=== PATIENT | female | born 1950 | race Caucasian/White ===

== ENCOUNTER 2020-11-08 10:39 | Outpatient (REF) | payer MEDICARE, SELFPAY ==
--- NOTE | ~2020-11-08 | CT_ITS ---
EXAMINATION: CT CHEST WITH CONTRAST CLINICAL INFORMATION: Persistent cough COMPARISON: Previous chest x-ray April 2009 TECHNIQUE: Multidetector volumetric CT imaging of the chest was obtained after the administration of 65 mL of Omnipaque 350 intravenous contrast without immediate adverse reactions. Axial MIP volume rendering provided. Sagittal and coronal reformatted images were obtained. This CT examination was performed using dose optimization techniques as appropriate, variously including the following: *Automated exposure control *Adjustment of mA and/or kV according to patient size (this includes techniques or standardized protocols for targeted exams where dose is matched to indication/reason for exam; i.e. extremities or head) *Use of iterative reconstruction technique DLP: 140 mGy-cm FINDINGS: LUNGS: The lungs are clear. No pulmonary mass or nodule or evidence of pneumonia is seen. No endobronchial or endotracheal lesion is seen. MEDIASTINUM: There is evidence of mild coronary artery calcification. The mediastinum is otherwise normal. PLEURA: There is no pleural effusion. No pleural mass or thickening. AXILLA: No lymphadenopathy. UPPER ABDOMEN: The gallbladder is been removed. There is fatty infiltration of the liver. There is mild diverticulosis of the colon. There is fullness of the left renal pelvis. OSSEOUS STRUCTURES: There is scoliosis and degenerative change of the spine. CT/CT chest w con IMPRESSION: Mild coronary artery calcification otherwise unremarkable chest CT.
[2020-11-08] MEDS: iohexoL 350 MG/ML 100 ML INFUS..BTL IV (11:43)
== END 2020-11-08 10:40 | disposition home or self-care (01) ==
LOC: HO.CT 10:39
PROVIDERS: PCP Internal Medicine; Visit Provider Internal Medicine
DX: R05 Cough (principal)
CPT/HCPCS: 71260; Q9967

== ENCOUNTER 2022-01-29 07:26 | Day surgery (SDC) | payer MEDICARE, SELFPAY ==
--- NOTE | 2022-01-28 12:07 | HO.ANESPROP2 ---
Documented by User: Anjana Howard NP 01/28/22 12:08 HPI - Anesthesia Eval Consult details Narrative: 72yo F for Colonoscopy [facility] Past Medical History Medical History Huerta's cyst of knee Basal cell carcinoma GERD (gastroesophageal reflux disease) IBS (irritable bowel syndrome) Macular degeneration Surgical History Surgical History History of lumpectomy of left breast History of total abdominal hysterectomy Hx of appendectomy Hx of cholecystectomy Hx of colonoscopy Hx of esophagogastroduodenoscopy Hx of umbilical hernia repair Social History Social History Patient Tobacco Use Status: Never used Tobacco Are you DNR?: No Advance Directives: No Advance Directives Information Provided: Yes Recently lost weight without trying: No Nutrition Risks: No Nutritional Risk Meds Allergies Allergy/AdvReac Type Severity Reaction Status Date / Time Sulfa (Sulfonamide Allergy Unknown Verified 02/09/13 00:00 Antibiotics) From ZYRTEC Allergy Mild BILLIGERENT Uncoded 12/29/19 14:53 Lactose Allergy Unknown Uncoded 02/09/13 00:00 ZyrTEC Allergy Unknown Uncoded 02/09/13 00:00 Home Medications Medication Instructions Recorded Confirmed Last Taken Type aspirin 81 mg tablet 81 mg PO DAILY 01/28/22 01/29/22 01/22/22 History ibuprofen 200 mg tablet 200 mg PO Q6H PRN Pain 01/29/22 01/29/22 Unknown History Exam Exam Date and Time: January 28, 2022 120 Assessment and Plan Assessment Anesthesia Assessment: Chart Reviewed Documented by User: Vanessa Moreno MD 01/29/22 09:23 [facility] Past Medical History Medical History Huerta's cyst of knee Basal cell carcinoma GERD (gastroesophageal reflux disease) IBS (irritable bowel syndrome) Macular degeneration Functional capacity: uses cane/walker Surgical History Surgical History History of lumpectomy of left breast History of total abdominal hysterectomy Hx of appendectomy Hx of cholecystectomy Hx of colonoscopy Hx of esophagogastroduodenoscopy Hx of umbilical hernia repair History of Problems with Anesthesia: No Social History Social History Patient Tobacco Use Status: Never used Tobacco Are you DNR?: No Advance Directives: No Advance Directives Information Provided: Yes Recently lost weight without trying: No Nutrition Risks: No Nutritional Risk Meds Allergies Allergy/AdvReac Type Severity Reaction Status Date / Time Sulfa (Sulfonamide Allergy Unknown Verified 02/09/13 00:00 Antibiotics) From ZYRTEC Allergy Mild BILLIGERENT Uncoded 12/29/19 14:53 Lactose Allergy Unknown Uncoded 02/09/13 00:00 ZyrTEC Allergy Unknown Uncoded 02/09/13 00:00 Home Medications Medication Instructions Recorded Confirmed Last Taken Type aspirin 81 mg tablet 81 mg PO DAILY 01/28/22 01/29/22 01/22/22 History ibuprofen 200 mg tablet 200 mg PO Q6H PRN Pain 01/29/22 01/29/22 Unknown History Exam Airway Mallampati Class: II TM Dist: >3cm Neck ROM: Full Loose/Missing/Broken Teeth: No Heart: RRR Lungs: CTA Assessment and Plan Assessment Anesthesia Assessment: Anesthesia Plan Discussed Final Anesthetic Review History of Problems with Anesthesia: No NPO: Yes ASA Class: II Final Preanesthetic Review: Meds/Allgs Chart Reviewed, Consent Obtained/Reviewed and Anes Risks/Benef Reviewed Patient Risk: Low Procedure Risk: Low Anesthetic Plan Anesthetic Plan: MAC: Disposition: Standard PACU
[2022-01-29 07:01] VITALS: BMI 33.0
[2022-01-29 07:32] VITALS: BP 126/64; PULSE 102; RESP 18; TEMP 36.6; O2SAT 98
[2022-01-29] MEDS: Lactated Ringers 1,000 ML 100 ML IVCONT (08:00)
[2022-01-29 09:47] VITALS: BP 158/82; PULSE 87; RESP 18; TEMP 36.4; O2SAT 99
[2022-01-29 10:02] VITALS: BP 92/58; PULSE 63; RESP 16; TEMP 36.2; O2SAT 99
--- NOTE | 2022-01-29 10:02 | PM.OP ---
Brief Operative Note Date of Service: 01/29/22 Pre-op diagnosis: Screening Post-op diagnosis: other (Polyp) Procedure: Colonoscopy to the cecum and TI with bx/removal of polyp Surgeon: Steve Regalado Anesthesia: MAC Was an Frame Sample And Pattern Supervisor used for this Procedure?: No Estimated blood loss (mL): 2.0 Pathology: other (A. Ascending colon polyp) Condition: stable Disposition: PACU
[2022-01-29 10:17] VITALS: BP 105/64; PULSE 64; RESP 16; O2SAT 99
[2022-01-29 10:32] VITALS: BP 143/62; PULSE 64; RESP 16; TEMP 36.2; O2SAT 99
--- NOTE | 2022-01-29 10:54 | OP_ITS ---
SURGEON: Steve Regalado MD INDICATIONS: The patient presents for evaluation of colorectal cancer screening and family history of colon cancer. Full consent has been obtained from her for this, including risks of bleeding and perforation. PREOPERATIVE DIAGNOSIS: Colorectal cancer screening and family history of colon cancer. POSTOPERATIVE DIAGNOSIS: PROCEDURE PERFORMED: Colonoscopy to the cecum and terminal ileum with biopsy and removal of polyp. ESTIMATED BLOOD LOSS: COMPLICATIONS: ANESTHESIA: Monitored anesthesia care. ASSISTANTS: SPECIMENS: POSTOPERATIVE DIAGNOSES: Colorectal cancer screening and family history of colon cancer, small colon polyp, diverticulosis, internal hemorrhoids. DESCRIPTION OF PROCEDURE: The patient was placed in the left lateral decubitus position. The digital rectal exam revealed no abnormalities. The Olympus video pediatric colonoscope was entered into the rectum and advanced to the cecum with the assistance of abdominal wall pressure. Advancement to the cecum was difficult. Once in the cecum I did identify a normal-appearing cecal pouch with appendiceal orifice and a normal-appearing ileocecal valve. The terminal ileum was cannulated and appeared normal. The scope was withdrawn back in the colon. The entire cecum and ileocecal valve appeared normal. The scope was then slowly withdrawn assessing all mucosal surfaces carefully. Preparation was excellent. In the proximal ascending colon was an approximately 4 or 5 mm polyp, which was biopsied and completely removed with a cold biopsy forceps. I did not visualize any other polyps, colitis, nor angiodysplasia. There was a mild amount of diverticulosis in the ascending colon. There was a moderate amount of diverticulosis in the sigmoid colon. In the rectum, the scope was retroflexed visualizing internal hemorrhoids, but no other pathology. The rectal mucosa appeared normal. The scope was straightened and withdrawn from the patient. She tolerated the procedure well and was returned to the recovery area in stable condition. IMPRESSION: 1. Diverticulosis. 2. Internal hemorrhoids. 3. Small colon polyp. PLAN: The results of the pathology will be checked I would recommend a repeat colonoscopy in 5 years given her family history of colon cancer. She will otherwise see me on a p.r.n. basis. MD ALEX Nath/JOANNA / [id number]
== END 2022-01-29 11:40 | disposition home or self-care (01) ==
PROVIDERS: PCP Internal Medicine; Visit Provider Internal Medicine
PROC: 0DJD8ZZ Inspection of Lower Intestinal Tract, Via Natural or Artificial Opening Endoscopic (ICD-10-PCS; CPT 45378; principal; 2022-01-29 08:40)
DX: Z12.11 Encounter for screening for malignant neoplasm of colon (principal); Z80.0 Family history of malignant neoplasm of digestive organs; D12.2 Benign neoplasm of ascending colon; K57.30 Diverticulosis of large intestine without perforation or abscess without bleeding; K64.8 Other hemorrhoids; K21.9 Gastro-esophageal reflux disease without esophagitis; K58.9 Irritable bowel syndrome, unspecified; Z79.82 Long term (current) use of aspirin; Z90.49 Acquired absence of other specified parts of digestive tract
CPT/HCPCS: 45380; 88305

== ENCOUNTER 2024-10-20 09:16 | Outpatient (REF) | payer MEDICARE, SELFPAY ==
--- NOTE | ~2024-10-20 | XR_ITS ---
EXAMINATION: XR CHEST CLINICAL INFORMATION: DYSPNEA ON EXERTION COMPARISON: April 16, 2009. TECHNIQUE: 2 views of the chest were obtained. FINDINGS: Pulmonary reticular pattern. No consolidation pleural effusion or pneumothorax. No hyperinflation. Cardiomediastinal silhouette size is normal. Calcified plaque thoracic aortic arch. Multilevel thoracolumbar spondylosis. Osteopenia versus osteoporosis. Probable old compression deformities in the mid to lower thoracic spine representing less than 20% volume loss. S-shaped curvature of the thoracolumbar spine. Vascular clips in the right upper quadrant abdomen. XR/XR chest 2V IMPRESSION: No acute airspace disease. Scoliosis and multilevel spondylosis. Probable status post cholecystectomy. Electronically signed by: Dakota Crane MD 10/20/2024 09:40 AM EDT
--- OUTSIDE RECORDS SUMMARY | 2024-10-20 09:42 | XMS_ITS | Data Portability ---
Author Organization [place] [facility], [facility], [facility] Address [address] [place] [address] Assessment No assessment recorded. Plan of Treatment Reminders Order Date Submit Date Provider Last Modified By Organization Details Last Modified Time Details Appointments None recorded. Lab None recorded. Referral neurologis t referral - eval requested, had CT Head in [facility] last month. 2022 023 [facility] John Ernst, [address] [place] [address], [facility] [address], [place], [address], 21:50:31 Procedures None recorded. Surgeries None recorded. Imaging None recorded. Medication Orders None recorded. Patient TargetsNo targets recorded. Patient InstructionsNo instructions recorded. Reason for Referral Neurologist Referral for Mem ory impairment eval requested, had CT Head in [facility] last month. Referring Physician: Lorene Ortiz, Family Medicine, Encounter Date: 08/13/2022 Medical Equipment None Reported. Allergies No known drug allergies Medications Name Sig Start Date Stop Date Status Note LastModified by Organization Details LastModified Time ketoconazole 2 % shampoo MASSAGE INTO SCALP, LET IT SIT FOR 5-10 MINUTES THEN WASH OUT CAN USE DAILY OR 2-3 TIMES A WEEK active Not Available Not Available No t Available cetirizine 10 mg tablet TAKE 1 TABLET BY MOUTH EVERY DAY active Not Available Not Available No t Available amoxicillin 500 mg tablet TAKE 1 TABLET BY MOUTH 3 TIMES A DAY UNTIL GONE active Not Available Not Available No t Available mupirocin 2 % topical ointment APPLY TO SURGICAL SITE TWICE A DAY 7-14 DAYS OR UNTIL FULLY HEALED active Not Available Not Available No t Available celecoxib 100 mg capsule TAKE ONE CAPSULE BY MOUTH 2 TIMES A DAY NEEDED active Not Available Not Available No t Available clindamycin phosphate 1 % topical solution APPLY TO AFFECTED AREA ONCE TO TWICE DAILY NEEDED. active Not Available Not Available No t Available diclofenac 1 % topical gel APPLY TO LEFT KNEE TWICE A DAY active Not Available Not Available No t Available Vitals None Recorded Social History None recorded. Functional Status None recorded. Mental Status None recorded. Family History Nothing Reported. Medical History No medical history recorded. Gynecological HistoryNo gynecological history recorded. Obstetrics History GPAL:G 0 P 0 0 0 0 Past Encounters Encounter ID Performer Location Encounter Start Date Encounter Closed Date Diagnosis/Indication Diagnosis SNOMED-CT Code Diagnosis ICD10 Code Diagnosis Note [id number] Lorene Ortiz APRN [address] [address] 08/13/2022 15:54:50 08/15/2022 10:56:34 Forgetful 63736882 R41.3 Memory impairment 900191 006 R41.3 Migraine with aura 71051 06 G43.109 Visual impairment 812683 003 H54.7 Health Concerns Section Related Observation LastModified by Organization Detai ls LastModified Time None Recorded Concern Status LastModified by Organization Details LastModified Time None Recorded Advance Directives Directive None Recorded Payers Insurance Date Sequence Insurance Name Policy Number Policy Finch Covered Member ID Finch Member ID Guarantor Name 12/31/2023 1 [place] Julian Long [id number] Julian Long 09/02/2022 2 [id number] (MEDICARE SUPPLEMENT) Julian Long 08/13/2022 1 *SELF PAY* Shanita Long Notes Date Note Type Note Provider Name and Address Organization Details Recorded Time 08/13/2022 text/html 72 yo female presents for follow up, telemed c/o still having an issue of pain to the left knee, no wound. Instructed to see ortho over a year ago, she was advised to not have surgery at this time. She had injured the leg dancing. The knee is not giving out, no obvious swelling. c/o memory loss and forgetfulness, forgets names, gets confused with words, but unable to recall the word sometimes. difficulty with conversations or maintaining a speech dialogue. headaches, blurred vision also experienced, photosensitivity, had Aura/halo in the past, but more freq lately. no falls , no head trauma. Progressing over the past few years. -has been exercising more, no shuffling admitted, does ambulate more effectively. -CT head recently- arthritis of the neck per patient's spouse. [address] [facility]. Consent:I understand and agree that my Healthcare Provider may utilize telemedicine (the electronic communication of medical information) including, but not limited to, video conferencing, electronic transmission of imaging, and remote monitoring of vital signs as part of my Care. Except in emergency circumstances, my Healthcare Provider will explain the risks and benefits of telemedicine prior to the telemedicine encounter. I understand that I have the right to seek Care elsewhere in lieu of a telemedicine encounter. This visit was performed using real time audio-visual communication with the patient. Patient verbally consented. Patient location:Home Provider location:Office The participants are myself, the patient____ participants and their role. Lorene Ortiz, [employer] ANALYST [address], [address], [place], [address], [facility] [place] 08/13/2022 17:26:29 OBGyn Episode No OBEpisode recorded.
--- OUTSIDE RECORDS SUMMARY | 2024-10-20 09:42 | XMS_ITS | Patient Health Record ---
Author Organization [facility] [place] Address [address] [place] [address] Care Team Providers Care Date Night Sitter Name Role Phone Conner Hauser MD Primary Care Provider Lonnie Ngo Unavailable [phone] Allergies Allergen (clinical drug ingredient) Drug/Non Drug Allergy documented on EMR Reaction Allergy Type Onset Date Status Lactose Unknown Drug Allergy Active ZyrTEC Unknown Drug Allergy Active sulfa lethargic Drug Allergy Active Reason For Referral No Information Medications Medication SIG (Take, Route, Fr equency, Duration) Notes Start Date End Date Status Aspirin 81 MG 1 tablet Orally Once a day 4 Not-Taking Physical Therapy . . . 2-3x/week; Durat ion: 3-4 weeks 07/10/2014 Active PriLOSEC 40 MG 1 capsule Orally Once a day Not-Taking Social History Tobacco use other than smoking: Question Answer Notes Are you an other tobacco user? No Problems Problem Type SNOMED Code ICD Code Onset Dates Problem Status W/U Status Risk Notes Problem Verruca plantaris (28767157) Verruca Plantaris (078.19) Active confirmed Problem Pain in limb (74071850) Pain in Limb (729.5) Active confirmed Problem Hammer toe (585066649) Hammer toe (735.4) Active confirmed Plan Of Treatment Pending Test Test Name Order Date X ray : Foot, right 3V 07/10/2014 63408-Ufpy Destruction, 1-14 07/24/2014 82520-Wqrm Destruction, -14 08/16/2014 98194-Ilnh Destruction, -07/11/2013 89933-Hjtk Destruction, -08/08/2013 90843-Prlq Destruction, 04-2609/07/2013 24285-Phjs Destruction, 04-2610/13/2013 95616-Urml Destruction, 04-2611/10/2013 53718-Xhmh Destruction, 04-2612/14/2013 15858-Dluk Destruction, 04-2601/25/2014 27192-Cbbn Destruction, 04-2602/27/2014 78503-Xpsr Destruction, 04-2603/29/2014 33738-Lemx Destruction, 04-2605/31/2014 73635-Rncf Destruction, 04-2606/28/2014 59878-Dtow Destruction, 04-2607/10/2014 Insurance Providers Payer Name Payer Address Payer Phone Subscriber Number Group Number Insured Name Patient Relationship to Insured Coverage Start Date Coverage End Date [facility] [address] [place] [address] [phone] [id number] Eduin Long Spouse - patient is the spouse of the insured Medical (General) History Medical History History ICD Code Chicken pox Measles Mumps Transfusions Surgical History Surgery Date(Month/Year) cystectomy gall bladder hysterectomy lumpectomy
== END 2024-10-20 09:17 | disposition home or self-care (01) ==
LOC: HO.HMGCX 09:16
PROVIDERS: PCP Internal Medicine; Visit Provider Internal Medicine
DX: R06.09 Other forms of dyspnea (principal)
CPT/HCPCS: 71046

== ENCOUNTER → 2024-10-20 09:22 | Outpatient (BNV) | payer MEDICARE, SELFPAY | PROVIDERS: PCP Internal Medicine; Visit Provider Radiology Diagnostic Radiology | DX: R06.00 Dyspnea, unspecified (principal); M47.814 Spondylosis without myelopathy or radiculopathy, thoracic region; M48.04 Spinal stenosis, thoracic region | CPT/HCPCS: 71046 ==

== ENCOUNTER 2024-11-10 11:20 | Outpatient (AMB) | payer MEDICARE, SELFPAY ==
--- NOTE | 2024-11-10 11:25 | MHC.OFFVIS ---
Vital Signs 11/10/24 11:26 Height 5 ft 1 in Intake Visit Reasons: [employer]ING [employer]AL [employer]ER/PCP referral for LE swelling Intake Note: [employer]ING [employer]ER for LE swelling, Left LE slightly worse than the Right LE x 5 yrs. Pt states worse when standing. Pt states elevation does help, but in the past the swelling would reduce quicker than it does now. Pt states she does wear compression when traveling. Map Compiler Required: No Accompanied by: Spouse Allergies Sulfa (Sulfonamide Antibiotics) Allergy (Unknown, Verified 02/09/13 00:00) From ZYRTEC Allergy (Mild, Uncoded 12/29/19 14:53) BILLIGERENT Lactose Allergy (Unknown, Uncoded 02/09/13 00:00) ZyrTEC Allergy (Unknown, Uncoded 02/09/13 00:00) HPI HPI [employer]ING [employer]ER/PCP referral for LE swelling: Details: Very pleasant 74 year patient presents for painful varicose veins. Complaints include pain over varicosities, swelling of lower extremities, cramping, fatigue, and heaviness of the lower extremities. It has been affecting there daily activities including walking and driving on long trips. It is noted more so in right leg. Of note she has used her daughter's lymphedema pumps which did provide some assistance. Patient denies any previous venous surgery or injections. Patient denies any history of DVT/ PE. Patient denies any history of phlebitis. Trial of compression includes - [id number] They now present for vascular evaluation regarding their varicose veins. [facility] Medical History Macular degeneration Huerta's cyst of knee Basal cell carcinoma IBS (irritable bowel syndrome) GERD (gastroesophageal reflux disease) Surgical History History of lumpectomy of left breast Hx of umbilical hernia repair Hx of appendectomy Hx of cholecystectomy History of total abdominal hysterectomy Hx of esophagogastroduodenoscopy Hx of colonoscopy Social History Patient Tobacco Use Status: Never used Tobacco Review of Systems Const Reports as per HPI ENT Reports no additional complaints Card Denies chest pain, Denies chest pain at rest and Denies chest pain with activity Resp Denies chest congestion and Denies cough GI Reports no additional complaints Musc Details: pain over varicosities, aching of lower extremities, swelling, cramping, heaviness and tiredness, itching Denies abnormal gait Skin/Breast Reports pruritus and Denies wounds Neuro Reports no additional complaints and Denies abnormal gait Psych Denies no additional complaints Physical Exam Const General: cooperative, healthy appearing and comfortable Orientation/consciousness: oriented to person, oriented to place and oriented to time Neck Carotids: no bruits Chest Chest palpation & inspection: normal inspection of the chest and normal palpation of entire chest wall Resp Effort & Inspection: normal respiratory effort and able to speak in complete sentences Cardio Rate: regular rate Heart sounds: S1 normal heart sound present and S2 normal heart sound present Peripheral pulses: Peripheral pulses 2+ throughout GI Inspection: Yes normal to inspection Skin Other: +2 edema, large rope-like varicosities greater than 4 mm CEAP Classification C4 - skin color changes Ep - Etiology Primary As - superficial veins P - reflux General skin exam: dry skin Neuro General: oriented to person, oriented to place and oriented to time Extrem Other: Right in cm: Thigh 59 Knee 43 Calf 39 Ankle 27 Left in cm: Thigh 56 Knee 40.5 Calf 40.5 Ankle 26 Right lower extremity: full ROM, normal capillary refill and edema Left lower extremity: full ROM, normal capillary refill and edema Psych Mental Status: mental status grossly normal Assessment & Plan Assessment & Plan (1) Varicose veins of right lower extremity with inflammation: Code(s): I83.11 - Varicose veins of right lower extremity with inflammation Category: Medical Plan: In short, the patient has evidence of venous insufficiency. I have discussed the pathophysiology with the patient. In addition I have provided informational material regarding venous disease to the patient. We have discussed conservative measures including compression, elevation, and exercise. I have also provided a handout regarding appropriate use of compression stockings and where to purchase good compression stockings as well. I have taken the liberty of ordering venous insufficiency testing with the patient. They will follow up with me after testing. The patient had an opportunity to ask questions regarding the treatment plan. All questions were answered. Imaging studies, laboratory studies and physical exam results were discussed and reviewed in detail. No major barriers to understanding were identified. The patient expressed understanding and agreement with the above treatment plan. The patient is aware they should contact our office by phone for worsening of the current condition or the appearance of new symptoms. Thank you for allowing me to participate in the vascular care of this patient. If you have any questions or concerns regarding the treatment for the above condition please do not hesitate to contact me. The office telephone contact is [phone]. This note is constructed using voice recognition software. While every effort has been made to ensure accuracy, pancake professional errors may have been included. Thank you for allowing me to participate in the care of your patient. Yours sincerely, Mesfin Anton MD, FACS, R.P.V.I. (2) Lymphedema: Code(s): I89.0 - Lymphedema, not elsewhere classified Category: Medical Plan: Patient does have evidence of lymphedema. She actually has had a trial of lymph compression pumps from her daughter which have provided significant relief. We will workup venous disease 1st. If that proves to be negative we will move forward with the process of trying to obtain lymphedema pumps for her. Thank you for allowing us to assist in her care. Orders: Orders US venous duplex LE BI Today I83.11 - Varicose veins of right lower extremity with inflammation Coding Level of Care Code Est Pt Level 4 (83805) Diagnoses Varicose veins of right lower extremity with inflammation I83.11 Lymphedema I89.0
--- OUTSIDE RECORDS SUMMARY | 2024-11-10 12:10 | XMS_ITS | Encounter Summary ---
Author Organization [facility] Address [address] [place], [place] [id number] Phone Care Team Providers Care Cranberry Farm Supervisor Name Role Phone Conner Hauser MD Primary Care Provider [phone] Conner Hauser MD Unavailable [phone] Conner Hauser MD Primary Care Provider [phone] Conner Hauser MD Unavailable [phone] Conner Hauser MD Unavailable [phone] Encounter Details Date Type Department Care Team (Latest Contact Info) Description 11/06/2017 Transcribe Orders [facility] Specimen Processing [address] [place] [address] Conner Hauser MD [address] [place] [address] [email or web address] Acute pharyngitis, unspecified etiology (Primary Dx) Social History Tobacco Use Types Packs/Day Years Used Date Smoking Tobacco: Never Smokeless Tobacco: Never Alcohol Use Standard Drinks/Week Comments Yes 0 (1 standard drink = 0.6 oz pur e alcohol) 2 x year Comments Unknown Sex and Gender Information Value Date Recorded Sex Assigned at Female 10/16/2021 9:08 AM EDT Legal Sex Female 10:02 PM EDT Gender Identity Female 10/16/2021 9:08 AM EDT Sexual Orientation Choose not to disclose 2021 9:08 AM EDT documented as of this encounter Plan of Treatment Upcoming Encounters Date Type Department Care Team (Late st Contact Info) Description 01/11/2025 3:30 PM EDT Office Visit [facility] Internal Medicine [address] [place] [address] Conner Hauser MD [address] [place] [address] [email or web address] documented as of this encounter Results * (ABNORMAL) Throat culture (11/06/2017 7:54 PM EDT) Specimen Source/ Description THROAT THROAT [facility] Special Requests None [facility] Culture/Test MIXED ORGANISMS RESEMBLING OROPHARYNGEAL JACKSON(A) [facility] Report Status 11/08/2017 FINAL [facility] Other (Throat) 11/06/2017 7: 54 PM EDT 11/06/2017 8:00 PM EDT Conner Hauser MD MICROBIOLOGY - GENERAL ORDERA BLES Final Result Performing Organization Address City/State/[facility] Co de Phone Number [facility] [address] [place] [address] documented in this encounter Visit Diagnoses Diagnosis Acute pharyngitis, unspecified etiology- Primary documented in this encounter Additional Health Concerns Assessment Noted Time PHQ-2 Depression Total Score: 0 04/20/19 18 10:27 AM EST documented as of this encounter Care Teams Cranberry Farm Supervisor Relationship Specialty Start Date End Date Conner Hauser MD [address] [place] [address] PCP - General 01/29/17 12/04/19 Conner Hauser MD [address] [place] [id number] PCP - General Internal Medicine 12/05/19 Conner Hauser MD [address] [place] [address] [email or web address] Insurance Assigned Provider 07/11/17 05/13/19 Conner Hauser MD [address] [place] [address] [email or web address] Insurance Assigned Provider 07/21/20 04/19/22 Conner Hauser MD [address] [place] [address] [email or web address] Insurance Assigned Provider 07/17/24 documented as of this encounter Additional Source Comments The information contained in this document represents components of the legal health record. It is not the complete legal health record.[facility]
--- OUTSIDE RECORDS SUMMARY | 2024-11-10 12:10 | XMS_ITS | Patient Health Record ---
Author [facility] Address [address] [place] [address] Care Team Providers Care Diagnostic Technologist Name Role Phone Conner Hauser MD Primary Care Provider Lonnie Ngo Unavailable [phone] Allergies Allergen (clinical drug ingredient) Drug/Non Drug [...] W/U Status Risk Notes Problem Verruca plantaris (90827739) Verruca Plantaris (078.19) Active confirmed Problem Pain in limb (46418869) Pain in Limb (729.5) Active confirmed Problem Hammer toe (752402505) Hammer toe (735.4) Active confirmed Plan Of Treatment Pending Test Test Name Order Date X ray : Foot, right 3V 07/10/2014 64054-Jrrx Destruction, 1-14 07/24/2014 02082-Iutg Destruction, -14 08/16/2014 64071-Xhhi Destruction, -14 07/11/2013 05532-Ifyu Destruction, -08/08/2013 39924-Gxrg Destruction, 04-2609/07/2013 75524-Beoh Destruction, 04-2610/13/2013 82788-Dsqz Destruction, 04-2611/10/2013 62860-Toul Destruction, 04-2612/14/2013 68409-Pmfk Destruction, 04-2601/25/2014 51679-Hlyt Destruction, 04-2602/27/2014 43996-Fvpx Destruction, 04-2603/29/2014 94134-Ogng Destruction, 04-2605/31/2014 37833-Rhpl Destruction, 04-2606/28/2014 61144-Weig Destruction, 04-2607/10/2014 Insurance Providers Payer Name Payer Address Payer Phone Subscriber Number Group Number Insured Name Patient Relationship to Insured Coverage Start Date Coverage End Date [facility] [address] [place] [address] [id number] Eduin Long Spouse - patient is the spouse of the insured Medical (General) History Medical History History ICD Code Chicken pox Measles Mumps Transfusions Surgical History Surgery Date(Month/Year) cystectomy gall bladder hysterectomy lumpectomy
== END 2024-11-10 11:53 | disposition home or self-care (01) ==
LOC: HO.HVS 11:21
PROVIDERS: PCP Internal Medicine; Visit Provider Surgery Vascular Surgery
DX: I83.11 Varicose veins of right lower extremity with inflammation (principal); I89.0 Lymphedema, not elsewhere classified
CPT/HCPCS: 99214

== ENCOUNTER → 2024-11-10 11:20 | Outpatient (BNVA) | payer MEDICARE, SELFPAY | PROVIDERS: PCP Internal Medicine; Visit Provider Surgery Vascular Surgery | DX: I83.11 Varicose veins of right lower extremity with inflammation (principal); I89.0 Lymphedema, not elsewhere classified | CPT/HCPCS: 99212 ==

== ENCOUNTER 2024-12-15 14:50 | Outpatient (REF) | payer MEDICARE, SELFPAY ==
--- NOTE | ~2024-12-15 | CT_ITS ---
EXAMINATION: CT CHEST WITH CONTRAST CLINICAL INFORMATION: Chronic cough COMPARISON: November 08, 2020 TECHNIQUE: Multidetector volumetric CT imaging of the chest was obtained after the administration of 65 mL of Omnipaque 350 intravenous contrast without immediate adverse reactions. Axial MIP volume rendering provided. Sagittal and coronal reformatted images were obtained. This CT examination was performed using dose optimization techniques as appropriate, variously including the following: *Automated exposure control *Adjustment of mA and/or kV according to patient size (this includes techniques or standardized protocols for targeted exams where dose is matched to indication/reason for exam; i.e. extremities or head) *Use of iterative reconstruction technique DLP: 291 mGY*cm FINDINGS: LUNGS: The lungs are clear with no evidence of inflammation or nodules. MEDIASTINUM: The mediastinum is normal. PLEURA: There is no pleural effusion. No pleural mass or thickening. AXILLA: No lymphadenopathy. UPPER ABDOMEN: The gallbladder is surgically absent. There is extrahepatic bile duct dilation. There are clips in the gallbladder fossa. There is a hypoenhancing 11 mm lesion in the superior aspect of the caudate lobe of the liver, posterior to IVC. It is unchanged from the prior. OSSEOUS STRUCTURES: Unremarkable. CT/CT chest w IV con IMPRESSION: There is an indeterminate solid appearing 11 mm lesion in the caudate lobe of the liver. Consider MRI abdomen without and with IV contrast to workup. It is stable since 2020. Unremarkable chest CT. Fleischner guidelines were followed. Electronically signed by: Carl Eric MD 12/15/2024 04:50 PM EDT
--- OUTSIDE RECORDS SUMMARY | 2024-12-15 16:01 | XMS_ITS | Patient Health Record ---
Author [facility] Address [address] [place] [address] Care Team Providers Care Lye Machine Operator Name Role Phone Conner Hauser MD Primary Care Provider Lonnie Ngo Unavailable [phone] Allergies Allergen (clinical drug ingredient) Drug/Non Drug [...] W/U Status Risk Notes Problem Verruca plantaris (63430210) Verruca Plantaris (078.19) Active confirmed Problem Pain in limb (41828379) Pain in Limb (729.5) Active confirmed Problem Hammer toe (299144602) Hammer toe (735.4) Active confirmed Plan Of Treatment Pending Test Test Name Order Date X ray : Foot, right 3V 07/10/2014 24473-Zmvz Destruction, 1-14 07/24/2014 73175-Lnsz Destruction, -14 08/16/2014 13733-Beed Destruction, -07/11/2013 52248-Ckpz Destruction, -08/08/2013 37057-Yqfn Destruction, 04-2609/07/2013 08516-Qzti Destruction, 04-2610/13/2013 73851-Ezfe Destruction, 04-2611/10/2013 53371-Npgv Destruction, 04-2612/14/2013 88072-Nvge Destruction, 04-2601/25/2014 46241-Lrdp Destruction, 04-2602/27/2014 67407-Ebmm Destruction, 04-2603/29/2014 85470-Rwfj Destruction, 04-2605/31/2014 88472-Ifot Destruction, 04-2606/28/2014 80813-Tlog Destruction, 04-2607/10/2014 Insurance Providers Payer Name Payer Address Payer Phone Subscriber Number Group Number Insured Name Patient Relationship to Insured Coverage Start Date Coverage End Date [facility] [address] [place] [address] [id number] Eduin Long Spouse - patient is the spouse of the insured Medical (General) History Medical History History ICD Code Chicken pox Measles Mumps Transfusions Surgical History Surgery Date(Month/Year) cystectomy gall bladder hysterectomy lumpectomy
--- OUTSIDE RECORDS SUMMARY | 2024-12-15 16:01 | XMS_ITS | Encounter Summary ---
Author Organization [facility] Address [address] [facility] [address] [place], [place] [id number] Phone Care Team Providers Care Engineering Project Designer Name Role Phone Conner Hauser MD Primary Care Provider Conner Hauser MD Unavailable [phone] Conner Hauser MD Primary Care Provider [phone] Conner Hauser MD Unavailable [phone] Conner Hauser MD Unavailable [phone] Encounter Details Date Type Department Care Team (Latest Contact Info) Description 11/06/2017 Transcribe Orders [facility] Specimen Processing [address] [place] [address] Conner Hauser MD [address] [place] [address] [email or web address] Acute pharyngitis, unspecified etiology (Primary Dx) Social [...] Description 01/11/2025 3:30 PM EDT Office Visit [facility] Internal Medicine [address] [place] [address] Conner Hauser MD [address] [place] [address] [email or web address] documented as of this encounter Results * (ABNORMAL) Throat culture (11/06/2017 7:54 PM EDT) Specimen Source/ Description THROAT THROAT [facility] Special Requests None [facility] Culture/Test MIXED ORGANISMS RESEMBLING OROPHARYNGEAL JACKSON(A) [facility] Report Status 11/08/2017 FINAL [facility] Other (Throat) 11/06/2017 7: 54 PM EDT 11/06/2017 8:00 PM EDT Conner Hauser MD MICROBIOLOGY - GENERAL SHANIQUEA BLES Final Result Performing Organization Address City/State/[facility] Co de Phone Number [address] [address] documented in this encounter Visit Diagnoses Diagnosis Acute pharyngitis, unspecified etiology- Primary documented in this encounter Additional Health Concerns Assessment Noted Time PHQ-2 Depression Total Score: 0 04/20/19 18 10:27 AM EST documented as of this encounter Care Teams Engineering Project Designer Relationship Specialty Start Date End Date Conner Hauser MD [address] [place] [id number] PCP - General 01/29/17 12/04/19 Conner Hauser MD [address] [place] [phone] PCP - General Internal Medicine 12/05/19 Conner Hauser MD [address] [place] [address] [email or web address] Insurance Assigned Provider 07/11/17 05/13/19 Conner Hauser MD [address] [place] [address] [email or web address] Insurance Assigned Provider 07/21/20 04/19/22 Conner Hauser MD [address] [place] [address] [email or web address] Insurance Assigned Provider 07/17/24 documented as of this encounter Additional Source Comments The information contained in this document represents components of the legal health record. It is not the complete legal health record.[facility]
--- OUTSIDE RECORDS SUMMARY | 2024-12-15 16:02 | XMS_ITS | Clinical Summary ---
Author Organization [facility] Address [address] [facility] [address] [place] [address] Phone Care Team Providers Care Groutman Name Role Phone Conner Hauser MD Primary Care Provider [phone] Conner Hauser MD Unavailable [phone] Allergies Active Allergy Reactions Criticality Noted Date Comments Caffeine 10/16/2021 Other reaction(s): restless, sweaty Egg GI Upset 10/07/2022 egg products causes upset stomach, diarrhea and gasy Lactose GI Upset 04/16/2017 Dairy products causes upset stomach, diarrhea and gasy Sulfa (Sulfonamide Antibiotics) 02/09/2013 Sulfites Palpitations,Dizzine s s Low 08/17/2017 In shampoo Cetirizine Anxiety Low 04/16/2017 Medications meclizine (ANTIVERT) 12.5 mg tabletIndicatio ns:Vertigo 1-2 tablets q 6 hours prn vertigo 40 tablet 1 1 Active ketoconazole (NIZORAL) 2 % shampoo MASSAGE INTO SCALP, LET IT SIT FOR 5-10 MINUTES THEN WASH OUT CAN USE DAILY OR 2-3 TIMES A WEEK 2 Active vit C/E/Zn/coppr/marie tein/zeaxan (PRESERVISION AREDS-2 ORAL) Take 1 capsule by mouth 2 (two) times a day. Active B6/folic/B12/co ffee/phosphatid (NEURIVA PLUS ORAL)Indication s:cognetive supplement Take 1 capsule by mouth daily. Indications: cognetive supplement Active Active Problems Problem Noted Date Diagnosed Date Frequent loose stools 10/07/2022 Assessment & Plan (10/07/2022 3:21 PM EDT): Pt reports freq loose stool alternating with constipation since her cholecystectomy. It is not acute, but is reoccurring. Her exam is negative. She is UTD with CRC screening, and does not have red flag warnings. I advised her to avoid known triggers, can try FODMAP diet. Also educated on BRAT diet to help mitigate s/s when she has diarrhea bouts. We can consider questran in the future which sometimes help to add bulk. Also can consider psyllium powder. She will f/u In 8 week to reassess how she is doing Basal cell carcinoma 10/16/2021 Assessment & Plan (10/16/2021 9:35 AM EDT): Patient has a shave biopsy left forehead positive for basal cell CA and should have Mohs procedure to remove remnant basal cell CA. I advised the patient given the long waiting time to go back to [place] in January as she intends to do and have the Mohs procedure there in [facility]. So I advised her to call the demand planning analyst whom she had seen and receive a referral from them and schedule for early February. Advised that the basal cell CA is very slow-growing and no metastases. Should be okay to schedule out into February. 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 The patient should set up with a orthopedist in [facility] when she goes back to [place] and if she has a flareup have the Huerta's cyst drained. Currently there was no issue to be dealt with. Obesity, Class II, BMI 35-39.9 01/21/2021 Class 2 severe obesity with body mass index (BMI) of 35 to 39.9 with serious comorbidity 10/23/2020 Post-nasal drip 09/21/2017 Assessment & Plan (09/22/2017 11:08 AM EDT): Discussed possible environmental/allergy cause of post-nasal drip as otherwise she is feeling well. Mold remediation is not feasible right now. I discussed trial of bleach/mold treatment with adequate ventilation. Continue bedroom air purifier. Try to minimize time in mold-contaminated areas of the home. As she does not tolerate OTC allergy rx well, suggested trial of QHS benadryl 25 mg, which she has taken with good effect before. Will f/u with office if any questions/concerns. Tremor of left hand 09/21/2017 Assessment & Plan (09/21/2017 2:37 PM EDT): Encouraged regular stretching of hands after working. Encouraged manual stretching as well as use of rolling motion on stress ball. Take frequent breaks during work and fine motions. Repeat labs routinely in 10/2017 with next visit. Please increase hydration re: possible muscle overuse/fatigue. Encounter for administration of vaccine 05/11/19 18 Family history of colon cancer 04/20/2017 Assessment & Plan (10/07/2022 3:22 PM EDT): + FHX, she is UTD with her screening. Fhx updated. Gastroesophageal reflux disease without esophagi tis 04/20/2017 Hyperlipidemia 04/20/2017 Hypothyroid 04/20/2017 Impaired fasting glucose 04/20/2017 Pure hypercholesterolemia 04/20/2017 Increased frequency of urination 04/20/2017 Stress incontinence in female 04/20/2017 Mixed incontinence 04/20/2017 Resolved Problems Problem Noted Date Diagnosed Date Resolved Date Class 2 severe obesity with body mass index (BMI) of 35 to 39.9 with serious comorbidity 10/16/2021 10/17/2024 Assessment & Plan (10/16/2021 9:33 AM EDT): counseled the pt on eating a low calorie diet to reduce excess weight. We talked about calorie restriction, weight watchers and exercise as possible to help move weight in the right direction. Cough 08/28/2017 09/21/2017 Assessment & Plan (08/28/2017 7:14 AM EDT): Discussed that although the respiratory infection is largely resolved, pt likely to experience a cough that may be productive over the next few weeks. Please continue to allow for mucous production, and continue mucinex. Given congestion today, suggested sudafed for 1-2 days. Reviewed common s/e. Please trial steam heat, minimizing allergens (avoid resuming mold cleaning at home), and can trial anti-allergy rx. Reassured re: overall improvement. Please call if any questions or concerns. Acute upper respiratory infection 08/18/2017 08/28/2017 Assessment & Plan (08/18/2017 7:29 AM EDT): Discussed acute URI and bronchitis. Will have CXR to r/o pna given length of sx and abnormal lung sounds today. Able to go now, will plan antimicrobial tx as indicated. Continue Tussin at night. Mucinex 600 mg during the day. Continue adequate hydration, steam heat, lozenges as needed. If taking abx, start probiotic (unable to eat yogurt). F/u 1-2 weeks for recheck before travel. F/u sooner if any worsening or persistent sx. Encounters Date Type Department Care Team Description 12/08/2024 9:38 AM EDT - 12/08/2024 11:59 PM EDT Hospital Encounter [facility] [address] [place] [address] Billy Burroughs PA-C Discharge Disposition: Home or Self Care 12/06/2024 Telephone [facility] [address] [place] [address] Conner Hauser MD Labs 11/02/2024 Telephone [facility] [address] [place] [address] Conner Hauser MD Referral ([facility] /) 10/21/2024 Telephone [facility] [address] [place] [address] Conner Hauser MD Results 10/20/2024 Orders Only [facility] [address] [place] [address] ProviderLes MD 10/19/2024 Telephone [facility] [address] [place] [address] Conner Hauser MD Results 10/17/2024 10:21 AM EDT - 10/17/2024 11:59 PM EDT Hospital Encounter [facility] [address] [facility] [place] [address] Conner Hauser MD Discharge Disposition: Home or Self Care 10/17/2024 8:30 AM EDT Office Visit [facility] [address] [place] [address] Conner Hauser MD Routine general medical examination at a health care facility (Primary Dx); Class 1 obesity due to excess calories without serious comorbidity with body mass index (BMI) of 34.0 to 34.9 in adult; Blocked ear, right; Screening mammogram, encounter for; Dyspnea on exertion; Pure hypercholesterolemi a; Malaise and fatigue; Impaired fasting blood sugar; Nocturia; Paroxysmal nocturnal dyspnea; Persistent cough; Lymphedema 10/17/2024 Telephone [facility] [address] [place] [address] scan ordered 10/17/2024 Telephone [facility] [address] [place] [address] Conner Hauser MD 10/11/2024 8:54 AM EDT - 10/11/2024 11:59 PM EDT Hospital Encounter [address] [address] Conner Hauser MD Discharge Disposition: Home or Self Care from Last 3 Months Immunizations Immunization Administration Dates Next Due COVID-19 (Pre-02/02) Pfizer Vaccine, mRNA, PF 05/27/2020,05/08/2020 INFLUENZA, SPLIT VIRUS, TRIV ALENT W/ PRESERVATIVE IM 02/26/2021,01/21/2016 Influenza High-Dose Quadriva lent Preservative Free IM 01/16/2023,01/21/2021,02/06/2020 Influenza High-Dose Trivalen t Preservative Free IM 04/20/2017 Pneumococcal conjugate PCV13 05/11/2017 Pneumococcal polysaccharide PPSV23 02/06/2020 Tdap 02/27/2015 Family History Medical History Relation Comments Heart disease Brother 1 Cancer Father skin cancer on l ip Colon cancer Father Diabetes Father Heart attack Father Cancer Mother Uterine cancer Mother Colon cancer Sister 1 Uterine cancer Sister 1 Colon cancer Unspecified Relation Status Comments Brother 1 Alive cardiac stents p laced Brother 2 Alive Brother 3 Father at 76 or 77 y/o d/t complications from diabetes from heart attackmultiple toes were amputated Mother (Age 53) at 53 d/t uterine cancer Sister 1 Alive Sister 2 Alive Unspecified Social History Tobacco Use Types Packs/Day Years Used Date Smoking Tobacco: Never Passive Smoke Exposure: Past Smokeless Tobacco: Never Tobacco Cessation:Counseling Given: Not Answered Passive Exposure Comments:pt's did smoke previously Alcohol Use Standard Drinks/Week Comments Yes 0 (1 standard drink = 0.6 oz pure alcohol) 10 drinks, mixed drinks, a year while on vacation Education Answer Date Recorded Are you interested in more education? Not on jeanne e 08/08/2022 Are you concerned about learning? Not on file 08/08/2022 No 08/08/2022 No 08/08/2022 Digital Access Answer Date Recorded No 09/08/2022 No 09/08/2022 Reliable internet access at home? Not on file 09/08/2022 Device with a working camera? Not on file Intimate Partner Violence Answer Date R ecorded Denied Basic Needs Not on file 12/02/2023 In the past 12 months have y ou been in a relationship with a person who hurts, threatens, or tries to control you? No 12/02/2023 Worried food would run out Not on file 12/01 In the past 12 months have y ou been in a relationship with a person who hurts, threatens, or tries to control you? No 12/02/2023 Comments No Sex and Gender Information Value Date Recorded Sex Assigned at Female 10/16/2021 9:08 AM EDT Legal Sex Female 10:02 PM EDT Gender Identity Female 10/16/2021 9:08 AM EDT Sexual Orientation Choose not to disclose 2021 9:08 AM EDT Last Filed Vital Signs Vital Sign Reading Time Taken Comments Blood Pressure 132/80 10/17/2024 9:13 AM EDT Pulse 80 10/17/2024 8:27 AM EDT Temperature 35.6 C (96 F) 10/17/2024 8:27 AM EDT Respiratory Rate 20 10/17/2024 8:27 AM EDT Oxygen Saturation 98% 10/17/2024 8:27 AM EDT Inhaled Oxygen Concentration - - Weight 81.8 kg (180 lb 6.4 oz) 10/17/2024 8:27 A M EDT Height 153.3 cm (5' 0.35 ) 10/17/2024 8:27 AM ED T Body Mass Index 34.82 10/17/2024 8:27 AM EDT Plan of Treatment Upcoming Encounters Date Type Department Care Team (Late st Contact Info) Description 01/11/2025 3:30 PM EDT Office Visit [facility] [address] [place] [address] Conner Hauser MD [address] [place] [address] [email or web address] Health Maintenance Due Date Last Done Comments COLOGUARD 1995 FIT TEST 1995 FOBT 1995 SIGMOIDOSCOPY 1995 VIRTUAL COLONOSCOPY 1995 ZOSTER VACCINES (1 of 2) 01/25/2000 INFLUENZA VACCINE (#1) 2024 , 02/28/2022, 02/26/2021, Additional history exists DEPRESSION SCREENING 12/01/2024 12/02/2023, 02/06/20 20 COVID-19 VACCINE ( - season) 2024 05/27/2020, 05/08/2020 RSV VACCINE (1 - 1-dose 75+ series) 2025 Adult Td,Tdap Booster 02/27/2025 02/27/2015 MAMMOGRAM 10/17/2026 10/17/2024, 10/2023, 11/03/2023, Additional history exists COLONOSCOPY 01/29/2027 01/29/2022, 10/2016, 09/07/2009 COLORECTAL CANCER SCREENING 01/29/2027 LIPID PANEL 10/17/2029 10/17/2024, 10/12, 11/09/2023, Additional history exists PNEUMOCOCCAL VACCINES (50+ years) Completed 02/06/2020, 05/11/2017 HEPATITIS C SCREENING Completed 10/24/2020, 021 OSTEOPOROSIS SCREENING INITIAL (ONE-TIME) Completed 10/11/2024, 11/25/2021 SMOKING STATUS SCREENING (Once After 26 Yrs) Completed 10/17/2024 HEPATITIS A VACCINES Aged Out No long er eligible based on patient's age to complete this topic HIB VACCINES Aged Out No longer eligi ble based on patient's age to complete this topic MENINGOCOCCAL VACCINES (ACWY) Aged Out No longer eligible based on patient's age to complete this topic MENINGOCOCCAL VACCINES (B) Aged Out N o longer eligible based on patient's age to complete this topic Medical Devices Not on file Procedures Procedure Name Priority Date/Time Associated Diagnosis Comments COMPREHENSIVE METABOLIC PANEL Routine 12/08/2024 9:38 AM EDT Medication monitoring encounter OUTSIDE IMAGING Routine 10/20/2024 12:[address] CHEST Routine 10/17/2024 8:34 PM EDT Persistent cough URINALYSIS W/REFLEX URINE CULTURE Routine 10/17/2024 10:44 AM EDT Nocturia CBC AND DIFFERENTIAL Routine 10/17/2024 10:21 AM EDT Class 1 obesity due to excess calories without serious comorbidity with body mass index (BMI) of 34.0 to 34.9 in adult Dyspnea on exertion Malaise and fatigue COMPREHENSIVE METABOLIC PANEL Routine 10/17/2024 10:21 AM EDT Class 1 obesity due to excess calories without serious comorbidity with body mass index (BMI) of 34.0 to 34.9 in adult Dyspnea on exertion Pure hypercholesterolemia LIPID PANEL Routine 10/17/2024 10:21 AM EDT Pure hypercholesterolemia TSH Routine 10/17/2024 10:21 AM EDT Class 1 obesity due to excess calories without serious comorbidity with body mass index (BMI) of 34.0 to 34.9 in adult Pure hypercholesterolemia Malaise and fatigue HEMOGLOBIN A1C Routine 10/17/2024 10:21 AM EDT Impaired fasting blood sugar FREE T4 Routine 10/17/2024 10:21 AM EDT Class 1 obesity due to excess calories without serious comorbidity with body mass index (BMI) of 34.0 to 34.9 in adult Pure hypercholesterolemia Malaise and fatigue BI MAMMOGRAM SCREENING (BILATERAL) Routine 10/17/2024 10:12 AM EDT Screening mammogram, encounter for BD DXA AXIAL (SPINE) WITH HIP Routine 10/11/2024 9:22 AM EDT Postmenopausal estrogen deficiency COLONOSCOPY FOR RESULT ENTRY ONLY Routine 01/29/2022 HEPATITIS C ANTIBODY, QUALITATIVE Routine 10/24/2020 8:02 AM EDT Need for hepatitis C screening test from Last 3 Months or Most Recently Relevant to Health Maintenance Results * (ABNORMAL) Comprehensive metabolic panel (12/08/2024 9:38 AM EDT) Only the most recent of2 resultswithin the time period is included. SODIUM 140 133 - 146 mmol/L [facility] POTASSIUM 4.3 3.3 - 5.1 mmol/L [facility] CHLORIDE 105 96 - 108 mmol/L [facility] CO2 26 21 - 35 mmol/L [facility] BUN 16 6 - 19 mg/dL [facility] CREATININE 0.70 0.5 - 1.5 mg/dL [facility] GLUCOSE 114(H) 70 - 99 mg/dL [facility] ALBUMIN 4.1 3.9 - 4.8 g/dL [facility] TOTAL PROTEIN 7.1 6.5 - 8.0 g/dL [facility] CALCIUM 9.4 8.4 - 10.3 mg/dL [facility] ALKALINE PHOSPHATASE 76 39 - 117 U/L [facility] TOTAL BILIRUBIN 0.3 0.0 - 1.2 mg/dL [facility] AST 21 0 - 37 U/L [facility] ALT 13 0 - 40 U/L [facility] GLOBULIN 3.0 1 - 4.8 g/dL [facility] EGFR 91 >59 mL/min/1.7 3m2 [facility] Comment:Estimated glomerular filtration rate calculated using the CKD-EPI refit equation. ANION GAP 13 10 - 20 mmol/L [facility] Blood 12/08/2024 9:38 AM EDT 12/08/2024 9:41 AM EDT us Billy Burroughs PA-C LAB BLOOD ORDERABLES Final Re sult Performing Organization Address [facility]/ZIP Co de Phone Number [address] [address] * Outside Imaging Report Only (10/20/2024 12:06 PM EDT) us Historical Provider IMG XR CHEST Edited Re sult - Final * Urinalysis w/reflex Urine Culture (10/17/2024 10:44 AM EDT) COLOR Yellow Yellow [facility] CLARITY Clear [facility] GLUCOSE Negative Negative [facility] BILI Negative Negative [facility] KETONES Negative Negative [facility] SPECIFIC GRAVITY 1.010 1.005 - 1.030 [facility] BLOOD Negative Negative [facility] PH 7.0 5.0 - 8.0 [facility] Protein-UA Negative Negative [facility] NITRITE Negative Negative [facility] Leukocyte esterase, ur Negative Negative [facility] Urine (Urine) 10/17/2024 10: 44 AM EDT 10/17/2024 10:47 AM EDT us Conner Hauser MD URINE ORDERABLES Final Result Performing Organization Address [facility]/ZIP Co de Phone Number [address] [address] * (ABNORMAL) CBC and differential (10/17/2024 10:21 AM EDT) WBC 7.19 4.00 - 11.00 K/uL [facility] RBC 4.06 4.00 - 5.20 M/uL [facility] HGB 13.2 12.0 - 16.0 g/dL [facility] HCT 41.2 36.0 - 46.0 % [facility] PLT 198 150 - 450 K/uL [facility] MCV 101.5(H) 80.0 - 100.0 fL [facility] MCH 32.5(H) 27.0 - 31.0 pg [facility] MCHC 32.0 32.0 - 36.0 g/dL [facility] RDW 14.0 11.5 - 14.5 % [facility] MPV 11.7 8.4 - 12.0 fL [facility] NRBC 0.00 0.00 /100 WBCs [facility] ABSOLUTE NRBC 0.00 0.00 K/uL [facility] DIFF METHOD Auto [facility] NEUTS 50.1 48.0 - 76.0 % [facility] LYMPHS 40.2 18.0 - 41.0 % [facility] MONOS 6.0 4.0 - 11.0 % [facility] EOS 2.8 0.0 - 5.0 % [facility] BASOS 0.6 0.0 - 1.5 % [facility] Granulocytes, immature (%) 0.3 0.0 - 0.9 % [facility] ABSOLUTE NEUTS 3.61 1.92 - 7.60 K/uL [facility] ABSOLUTE LYMPHS 2.89 0.72 - 4.10 K/uL [facility] ABSOLUTE MONOS 0.43 0.16 - 1.10 K/uL [facility] ABSOLUTE EOS 0.20 0.00 - 0.50 K/uL [facility] ABSOLUTE BASOS 0.04 0.00 - 0.15 K/uL [facility] Granulocytes, immature 0.02 0.00 - 0.09 K/uL [facility] Blood 10/17/2024 10:2 1 AM EDT 10/17/2024 10:26 AM EDT us Conner Hauser MD LAB BLOOD ORDERABLES Final Re sult Performing Organization Address [facility]/ZIP Co de Phone Number [address] [address] * TSH (10/17/2024 10:21 AM EDT) TSH 4.12 0.27 - 4.20 uIU/mL [facility] Blood 10/17/2024 10:2 1 AM EDT 10/17/2024 10:26 AM EDT us Conner Hauser MD LAB BLOOD ORDERABLES Final Re sult Performing Organization Address [facility] de Phone Number [address] [address] * Free T4 (10/17/2024 10:21 AM EDT) FREE T4 1.0 0.9 - 1.7 ng/dL [facility] Blood 10/17/2024 10:2 1 AM EDT 10/17/2024 10:26 AM EDT us Conner Hauser MD LAB BLOOD ORDERABLES Final Re sult Performing Organization Address [facility] Co de Phone Number [address] [address] * (ABNORMAL) Hemoglobin A1c (10/17/2024 10:21 AM EDT) HEMOGLOBIN A1C 5.9(H) 4.3 - 5.8 % [facility] Blood 10/17/2024 10:2 1 AM EDT 10/17/2024 10:26 AM EDT us Conner Hauser MD LAB BLOOD ORDERABLES Final Re sult Performing Organization Address [facility] Co de Phone Number [address] [address] * (ABNORMAL) Lipid panel (10/17/2024 10:21 AM EDT) HDL 58 mg/dL [facility] Comment: Interpretation <40 mg/dL: Low HDL cholesterol (major risk factor for CHD) Greater than or equal to 60 mg/dL: High HDL cholesterol ( negative risk factor for CHD) HDL - cholesterol is affected by a number of factors, e.g. smoking, excerise, hormones, sex and age. CHOLESTEROL 263(H) 0 - 240 mg/dL [facility] TRIGLYCERIDES 233(H) 30 - 160 mg/dL [facility] LDL 158(H) 50 - 129 mg/dL [facility] Comment: LDL levels in terms of risk for coronary heart disease: <100 mg/dL: Optimal 100-129 mg/dL: Near or above optimal 130-159 mg/dL: Borderline high 160-189 mg/dL: High >190 mg/dL: Very High CARDIAC RISK RATIO 4.5(H) 3.3 - 4.4 C [facility] Blood 10/17/2024 10:2 1 AM EDT 10/17/2024 10:26 AM EDT us Conner Hauser MD LAB BLOOD ORDERABLES Final Re sult [facility] [address] [place] [address] * BD DXA AXIAL (SPINE) WITH HIP (10/11/2024 9:22 AM EDT) Anatomical Region Laterality Modality Bone Density Bone Density 10/11/2024 9:13 AM EDT Impressions 10/12/2024 9:52 AM EDT Interpretation: Normal bone mineral density. Narrative 10/12/2024 9:52 AM EDT Referred By: CONNER HAUSER Indications: Postmenopausal and Estrogen Deficiency Scanner: [employer] A with serial# of [id number] located at [facility] Bone Density Scan (DXA) 10/11/24 Details of prior DXA scans are available by clicking View Full Report BMD T- Z- Skeletal Site gm/cm2 score score BMD Change Since Prior Scan ------ ----- ----- PA Spine (L1-L4) 1.208 1.50 3.80 N/A Total Hip (Left) 0.945 0.00 1.80 N/A Femoral Neck (Left) 0.817 -0.30 1.80 N/A Total Hip (Right) 0.985 0.40 2.10 N/A Femoral Neck (Right) 0.783 -0.60 1.50 N/A ------ ----- ----- * Denotes significant change when >= 0.022 g/cm2 for the spine, 0.027 g/cm2 for the total hip, 0.029 g/cm2 for the femoral neck. Interpretation: Normal bone mineral density. Technical Quality: Imaging of all sites was of adequate quality. FRAX: A FRAX(r) score is not provided because the patient has normal bone density. Reviewed By: Vanessa Juan MD on 10/12/2024 09:52:23 Additional Information: -World Health Organization criteria classify adults based on lowest T-score at PA spine, hip or forearm: Normal (T-score >= -1.0), Osteopenia (T-score between -1 and -2.5), or Osteoporosis (T-score <= -2.5). At [facility], T-scores are compared to peak bone density of a young white gender matched reference population. - For premenopausal women and men under the age of 50, Z-scores (comparison to age, gender, and ethnicity matched reference population) are used: Above expected range for age (Z-score >= 2.0), Within expected range of age (Z-score 1.9 to -1.9), or Below expected range for age (Z-score <= -2.0). - The Bone Health and Osteoporosis Foundation recommends that treatment be considered in men aged more than 50 years and in postmenopausal women with ANY of the following: Prior hip or vertebral fractures; T-score of <= -2.5 at the PA spine or hip; or 10 year fracture probability by FRAX of >= 3% for the hip or >= 20% for major osteoporotic fracture. - The FRAX algorithm (https://www.kandi.ac.uk/FRAX/tool.aspx) is designed to predict 10-year fracture risk in treatment-naive adults between the ages of 40 and 90. It is not intended to be used in those receiving pharmacologic osteoporosis treatment. - The TBS is derived from the texture of the DXA spine image and has been shown to be related to bone microarchitecture and fracture risk. This data provides information independent of BMD value. It adds to fracture risk assessment with a FRAX adjusted for TBS score. If your patient had a TBS and qualified for a FRAX score, the reported FRAX score has been adjusted for TBS. TBS Score Interpretation 1.350 and greater Normal bone microarchitecture 1.200 to 1.350 Partially degraded bone microarchitecture 1.200 and less Degraded bone microarchitecture - Including race/ethnicity in the generation of T- or Z-scores or in the FRAX calculation is complicated, and currently undergoing active review to ensure that we can give patients the best information on their risk of fracture. - Some prior studies may not be compatible with our comparison software. - Click on View Full Report to see subsequent pages with images and prior bone density results. Procedure Note Vanessa Juan MD - 10/12/2024 Referred By: CONNER HAUSER Indications: Postmenopausal and Estrogen Deficiency Scanner: [place]oft A with serial# of [id number] located at [facility] Bone Density Scan (DXA) 10/11/24 Details of prior DXA scans are available by clicking View Full Report BMD T- Z- Skeletal Site gm/cm2 score score BMD Change Since Prior Scan ------ ----- PA Spine (L1-L4) 1.208 1.50 3.80 N/A Total Hip (Left) 0.945 0.00 1.80 N/A Femoral Neck (Left) 0.817 -0.30 1.80 N/A Total Hip (Right) 0.985 0.40 2.10 N/A Femoral Neck (Right) 0.783 -0.60 1.50 N/A ------ ----- * Denotes significant change when >= 0.022 g/cm2 for the spine, 0.027g/cm2 for the total hip, 0.029 g/cm2 for the femoral neck. Interpretation: Normal bone mineral density. Technical Quality: Imaging of all sites was of adequate quality. FRAX: A FRAX(r) score is not provided because the patient has normal bone density. Reviewed By: Vanessa Juan MD on 10/12/2024 09:52:23 Additional Information: -World Health Organization criteria classify adults based on lowestT-score at PA spine, hip or forearm: Normal (T-score >= -1.0), Osteopenia (T-score between -1 and -2.5), or Osteoporosis (T-score <= -2.5). At [facility], T-scores are compared to peak bone density of a young white gender matched reference population. - For premenopausal women and men under the age of 50, Z-scores(comparison to age, gender, and ethnicity matched reference population) are used:Above expected range for age (Z-score >= 2.0), Within expected range of age (Z-score 1.9 to -1.9), or Below expected range for age (Z-score <= -2.0). - The Bone Health and Osteoporosis Foundation recommends that treatment be considered in men aged more than 50 years and in postmenopausal women with ANY of the following: Prior hip or vertebral fractures; T-score of <= -2.5 at the PA spine or hip; or 10 year fracture probability by FRAX of >= 3%for the hip or >= 20% for major osteoporotic fracture. - The FRAX algorithm (https://www.kandi.ac.uk/FRAX/tool.aspx) is designed to predict 10-year fracture risk in treatment-naive adultsbetween the ages of 40 and 90. It is not intended to be used in those receiving pharmacologic osteoporosis treatment. - The TBS is derived from the texture of the DXA spine image and has been shown to be related to bone microarchitecture and fracture risk. This data provides information independent of BMD value. It adds to fracture risk assessment with a FRAX adjusted for TBS score. If your patient had a TBSand qualified for a FRAX score, the reported FRAX score has been adjusted for TBS. TBS Score Interpretation 1.350 and greater Normal bone microarchitecture 1.200 to 1.350 Partially degraded bone microarchitecture 1.200 and less Degraded bone microarchitecture - Including race/ethnicity in the generation of T- or Z-scores or in the FRAX calculation is complicated, and currently undergoing active review to ensure that we can give patients the best information on their risk of fracture. - Some prior studies may not be compatible with our comparison software. - Click on View Full Report to see subsequent pages with images andprior bone density results. IMPRESSION: Interpretation: Normal bone mineral density. Conner Hauser MD IMG BD BONE DENSITY DEXA Yandy l Result * MAMMOGRAPHY FOR RESULT ENTRY ONLY (01/18/2024 3:03 PM EDT) Historical Provider HEALTH MAINTENANCE Final Result * COLONOSCOPY FOR RESULT ENTRY ONLY (01/29/2022) us Historical Provider HEALTH MAINTENANCE Edited Result - Final * Hepatitis C antibody, qualitative (10/24/2020 8:02 AM EDT) HCV NON-REACTIV E NON-REACTI VE [facility] Blood 10/24/2020 8:02 AM EDT 10/24/2020 8:08 AM EDT us Conner Hauser MD LAB BLOOD ORDERABLES Final Re sult [facility] [address] [place] [address] from Last 3 Months or Most Recently Relevant to Health Maintenance Insurance MEDICARE PART A & B [employer] MEDEX SUPPLEMENT MEDICARE PART A & B [employer] MEDEX SUPPLEMENT [employer] MEDEX SUPPLEMENT [employer] SUPPLEMENT [employer] SUPPLEMENT Member Subscriber Plan / Payer (Ef fective 2015-Present) Name:Julian Long Member ID:[id number] Relation to Subscriber:Self Name:Julian Long Subscriber ID:[id number] Payer ID:[id number] Group ID:Not on file Type:Medicare Address: [employer] [facility] [address] [address] [facility] MEDEX SUPPLEMENT MEDICARE PART A & B Osen MEDEX SUPPLEMENT MEDICARE PART A & B [employer] MEDEX SUPPLEMENT MEDICARE PART A & B [employer] MEDEX SUPPLEMENT Care Teams Groutman Relationship Specialty Start Date End Date Conner Hauser MD [address] [place] [address] [email or web address] PCP - General Internal Medicine 12/05/19 Conner Hauser MD [address] [place] [address] [email or web address] Insurance Assigned Provider 07/17/24 Additional Source Comments The information contained in this document represents components of the legal health record. It is not the complete legal health record.[facility]
[2024-12-15] MEDS: iohexoL 350 MG/ML 100 ML INFUS..BTL IV (16:30)
[2024-12-16 08:25] LABS: Creatinine POC 1.0 mg/dL (0.5-1.4); GFR POC 59
== END 2024-12-15 14:51 | disposition home or self-care (01) ==
LOC: HO.CT 14:50
PROVIDERS: PCP Internal Medicine; Visit Provider Internal Medicine
DX: R05.3 Chronic cough (principal)
CPT/HCPCS: 71260; 82565; Q9967

== ENCOUNTER → 2024-12-15 16:14 | Outpatient (BNV) | payer MEDICARE, SELFPAY | PROVIDERS: PCP Internal Medicine; Visit Provider Radiology Diagnostic Radiology | DX: R05.3 Chronic cough (principal) | CPT/HCPCS: 71260 ==

== ENCOUNTER 2024-12-22 13:28 | Outpatient (REF) | payer MEDICARE, SELFPAY ==
--- NOTE | ~2024-12-22 | US_ITS ---
EXAMINATION: US LOWER EXTREMITY VENOUS (REFLUX EXAM), BILATERAL CLINICAL INFORMATION: Varices COMPARISON: None. TECHNIQUE: Color flow triplex imaging and compression Doppler was performed to evaluate both the deep and the superficial systems bilaterally. To evaluate the superficial system, the examination was performed in the upright position. Color-flow Doppler ultrasound and compression ultrasound were utilized. In addition, maneuvers were utilized to demonstrate reflux. FINDINGS: 1. DEEP VENOUS ULTRASOUND OF THE RIGHT LOWER EXTREMITY: Common Femoral Vein: Compressible, normal respiratory variation and augmented flow. Femoral Vein: Compressible, normal color flow and augmentation. Popliteal Vein: Compressible, normal augmentation. Deep Reflux: There is no evidence of reflux in the deep system in either the common femoral vein, superficial femoral or the popliteal vein. There is no evidence of a Huerta's cyst. 2. SUPERFICIAL ULTRASOUND WITH DOPPLER OF RIGHT LOWER EXTREMITY: GREAT SAPHENOUS VEIN: Saphenofemoral Junction: 0.6 cm; Reflux: 0 ms Proximal Thigh: 0.5 cm; Reflux: 0 ms Mid Thigh: 0.4 cm; Reflux: 0 ms Distal Thigh: 0.4 cm; Reflux: 0 ms At Knee: 0.4 cm; Reflux: 0 ms Proximal Calf: 0.3 cm; Reflux: 0 ms Mid Calf: 0.3 cm; Reflux: 0 ms Distal Calf: 0.3 cm; Reflux: 0 ms DUPLICATED MEDIAL GREAT SAPHENOUS VEIN: Diameter: None imaged Reflux: NA DUPLICATED LATERAL GREAT SAPHENOUS VEIN: Diameter: None imaged Reflux: NA SMALL SAPHENOUS VEIN: Saphenopopliteal Junction: 0.2 cm; Reflux: 0 ms Proximal: 0.2 cm; Reflux: 0 ms Distal: 0.4 cm; Reflux: 0 ms VEIN OF GIACOMINI: Size: 0.1 cm. Reflux: NA PERFORATORS: Location: Mid calf Size: 0.1-0.2 cm. Reflux: NA VARICOSITIES: Location: None imaged. Size: NA Reflux: NA 3. DEEP VENOUS ULTRASOUND OF THE LEFT LOWER EXTREMITY: Common Femoral Vein: Compressible, normal respiratory variation and augmented flow. Femoral Vein: Compressible, normal color flow and augmentation. Popliteal Vein: Compressible, normal augmentation. Deep Reflux: There is no evidence of reflux in the deep system in either the common femoral vein, superficial femoral or the popliteal vein. There is a 5.1 x 1.7 x 3.4 cm lobulated anechoic lesion in the popliteal fossa without flow on color Doppler interrogation. 4. SUPERFICIAL ULTRASOUND WITH DOPPLER OF LEFT LOWER EXTREMITY: GREAT SAPHENOUS VEIN: Saphenofemoral Junction: 0.7 cm; Reflux: 0 ms Proximal Thigh: 0.4 cm; Reflux: 0 ms Mid Thigh: 0.3 cm; Reflux: 0 ms Distal Thigh: 0.3 cm; Reflux: 0 ms At Knee: 0.4 cm; Reflux: 0 ms Proximal Calf: 0.3 cm; Reflux: 0 ms Mid Calf: 0.2 cm; Reflux: 0 ms Distal Calf: 0.2 cm; Reflux: 0 ms DUPLICATED MEDIAL GREAT SAPHENOUS VEIN: Diameter: None imaged Reflux: NA DUPLICATED LATERAL GREAT SAPHENOUS VEIN: Diameter: 0.3-0.6 cm. Reflux: NA SMALL SAPHENOUS VEIN: Saphenopopliteal Junction: 0.3 cm; Reflux: 2440 ms Proximal: 0.1 cm; Reflux: 0 ms Distal: 0.2 cm; Reflux: 0 ms VEIN OF GIACOMINI: Size: NA Reflux: NA PERFORATORS: Location: Small saphenous vein proximal and mid segment. At the heel and midcalf. Size: [0.2-0.3 cm. Reflux: 2548 ms at the heel. VARICOSITIES: Location: Small saphenous vein mid segment. Size: [0.4 cm. Reflux: NA US/US venous duplex LE BI IMPRESSION: Right: No venous insufficiency. Perforators in the mid calf without reflux. Left: Venous insufficiency, small saphenous vein at the junction. Perforators with reflux at the heel. Varices without reflux mid segment small saphenous vein. 5.1 cm popliteal cyst. Electronically signed by: Dakota Crane MD 12/22/2024 02:36 PM EDT
--- OUTSIDE RECORDS SUMMARY | 2024-12-22 17:25 | XMS_ITS | Encounter Summary ---
Author Organization [facility] Address [address] [facility] [address] [place] [address] Phone Care Team Providers Care Mental Health Practitioner Name Role Phone Conner Hauser MD Primary Care Provider [phone] Conner Hauser MD Unavailable [phone] Encounter Details Date Type Department Care Team (Late st Contact Info) Description 12/22/2024 Orders Only [facility] Internal Medicine [address] [place] [address] Provider, MD Les [address] [place], [place] [address] Social History Tobacco Use Types Packs/Day Years Used Date Smoking Tobacco: Never Passive Smoke Exposure: Past Smokeless Tobacco: Never Passive Exposure Comments:pt 's did smoke previously Alcohol Use Standard Drinks/Week [...] Description 01/11/2025 3:30 PM EDT Office Visit [facility] Internal Medicine [address] [place] [address] Conner Hauser MD [address] [place] [address] [email or web address] documented as of this encounter Procedures Procedure Name Priority Date/Time Associated Diagnosis Comments OUTSIDE IMAGING Routine 12/22/2024 2:54 PM EDT documented in this encounter Results * Outside Imaging Report Only (12/22/2024 2:54 PM EDT) us Historical Provider IMMert XR CHEST Final Res ult documented in this encounter Visit Diagnoses Not on filedocumented in this encounter Additional Health Concerns Assessment Noted Time PHQ-2 Depression Total Score: 2 12/02/19 24 9:58 AM EDT documented as of this encounter Care Teams Mental Health Practitioner Relationship Specialty Start Date End Date Conner Hauser MD [address] [place] [address] [email or web address] PCP - General Internal Medicine 12/05/19 Conner Hauser MD [address] [place] [address] [email or web address] Insurance Assigned Provider 07/17/24 documented as of this encounter Additional Source Comments The information contained in this document represents components of the legal health record. It is not the complete legal health record.[facility]
--- OUTSIDE RECORDS SUMMARY | 2024-12-22 17:25 | XMS_ITS | Encounter Summary ---
Author Organization [facility] Address [address] [place] [address] Phone Care Team Providers Care Recreation Director Name Role Phone Conner Hauser MD Primary Care Provider [phone] Conner Hauser MD Unavailable [phone] Reason for Referral * MRI/CAT Scan - Closed Specialty Diagnoses / Procedures Referred By Nilson malagon Referred To Contact Radiology Procedures Outside CT Chest Report Only Isrrael Monreal [facility] Internal Medicine [address] [place] [address] Phone: tel: fax: Referral ID Status Reason Start Date Expiration Date Visits Re quested Visits Authorized [id number] Closed 12/16/2024 1 1 Encounter Details Date Type Department Care Team (Late st Contact Info) Description 12/16/2024 Orders Only Arcos Jocelin [facility] Internal Medicine [address] [place] [address] Les Diaz MD [address] [place] [address] Social History Tobacco Use Types Packs/Day Years [...] Description 01/11/2025 3:30 PM EDT Office Visit [facility] Internal Medicine [address] [place] [address] Conner Hauser MD [address] [place] [address] [email or web address] documented as of this encounter Procedures Procedure Name Priority Date/Time Associated Diagnosis Comments OUTSIDE LAB Routine 12/15/2024 12:[address] CHEST REPORT ONLY Routine 12/15/2024 8:14 AM EDT documented in this encounter Results * Outside Lab (12/15/2024 12:12 PM EDT) us Historical Provider MD LAB BLOOD ORDERABLES Yandy l Result * Outside CT??Chest Report Only (12/15/2024 8:14 AM EDT) Historical Provider MD REYES CT CHEST Final Res ult documented in this encounter Visit Diagnoses Not on filedocumented in this encounter Additional Health Concerns Assessment Noted Time PHQ-2 Depression Total Score: 2 12/02/19 24 9:58 AM EDT documented as of this encounter Care Teams Recreation Director Relationship Specialty Start Date End Date Conner Hauser MD [address] [place] [address] [email or web address] PCP - General Internal Medicine 12/05/19 Conner Hauser MD [address] [place] [address] Insurance Assigned Provider 07/17/24 documented as of this encounter Additional Source Comments The information contained in this document represents components of the legal health record. It is not the complete legal health record.[facility]
--- OUTSIDE RECORDS SUMMARY | 2024-12-22 17:25 | XMS_ITS | Encounter Summary ---
Author Organization [facility] Address [address] [facility] [address] [place], [place] [address] Phone Care Team Providers Care Hand Cloth Examiner Name Role Phone Conner Hauser MD Primary Care Provider [phone] Conner Hauser MD Unavailable [phone] Conner Hauser MD Primary Care Provider [phone] Conner Hauser MD Unavailable [phone] Conner Hauser MD Unavailable [phone] Encounter Details Date Type Department Care Team (Latest Contact Info) Description 11/06/2017 Transcribe Orders [facility] Specimen Processing [address] [place] [address] Conner Hauser MD [address] [place] [address] [email or web address] Acute pharyngitis, unspecified etiology (Primary Dx) Social [...] Description 01/11/2025 3:30 PM EDT Office Visit [facility] Internal Medicine [address] [place] [address] Conner Hauser MD [address] [place] [address] [email or web address] documented as of this encounter Results * (ABNORMAL) Throat culture (11/06/2017 7:54 PM EDT) Specimen Source/ Description THROAT THROAT [facility] Special Requests None [facility] Culture/Test MIXED ORGANISMS RESEMBLING OROPHARYNGEAL JACKSON(A) [facility] Report Status 11/08/2017 FINAL [facility] Other (Throat) 11/06/2017 7: 54 PM EDT 11/06/2017 8:00 PM EDT Connre Hauser MD MICROBIOLOGY - GENERAL SHANIQUEA BLES Final Result Performing Organization Address City/State/[facility] Co de Phone Number [address] [address] documented in this encounter Visit Diagnoses Diagnosis Acute pharyngitis, unspecified etiology- Primary documented in this encounter Additional Health Concerns Assessment Noted Time PHQ-2 Depression Total Score: 0 04/20/19 18 10:27 AM EST documented as of this encounter Care Teams Hand Cloth Examiner Relationship Specialty Start Date End Date Conner Hauser MD [address] [place] [address] PCP - General 01/29/17 12/04/19 Conner Hauser MD [address] [place] [address] PCP - General Internal Medicine 12/05/19 Conner Hauser MD [address] [place] [address] [email or web address] Insurance Assigned Provider 07/11/17 05/13/19 Conner Hauser MD [address] [place] [address] [email or web address] Insurance Assigned Provider 07/21/20 04/19/22 Conner Hauser MD [address] [place] [address] [email or web address] Insurance Assigned Provider 07/17/24 documented as of this encounter Additional Source Comments The information contained in this document represents components of the legal health record. It is not the complete legal health record.[facility]
--- OUTSIDE RECORDS SUMMARY | 2024-12-22 17:25 | XMS_ITS | Patient Health Record ---
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.19) Active confirmed Problem Pain in limb (14486883) Pain in Limb (729.5) Active confirmed Problem Hammer toe (028606450) Hammer toe (735.4) Active confirmed Plan Of Treatment Pending Test Test Name Order Date X ray : Foot, right 3V 07/10/2014 59251-Mfkf Destruction, 1-14 07/24/2014 10135-Vlwc Destruction, -14 08/16/2014 37804-Ybbr Destruction, -07/11/2013 13166-Leec Destruction, -08/08/2013 83729-Ugxt Destruction, 04-2609/07/2013 70789-Nkfu Destruction, 04-2610/13/2013 34928-Yzlc Destruction, 04-2611/10/2013 16940-Jbre Destruction, 04-2612/14/2013 30918-Gqdy Destruction, 04-2601/25/2014 44673-Qdbn Destruction, 04-2602/27/2014 88470-Zbeh Destruction, 04-2603/29/2014 75997-Niom Destruction, 04-2605/31/2014 87630-Koaz Destruction, 04-2606/28/2014 79137-Fzoa Destruction, 04-2607/10/2014 Insurance Providers Payer Name Payer Address Payer Phone Subscriber Number Group Number Insured Name Patient Relationship to Insured Coverage Start Date Coverage End Date [facility] [address] [place] [address] [id number] Eduin Long Spouse - patient is the spouse of the insured Medical (General) History Medical History History ICD Code Chicken pox Measles Mumps Transfusions Surgical History Surgery Date(Month/Year) cystectomy gall bladder hysterectomy lumpectomy
--- OUTSIDE RECORDS SUMMARY | 2024-12-22 17:25 | XMS_ITS | Clinical Summary ---
Author Organization [facility] Address [address] [facility] [address] [place] [address] Phone Care Team Providers Care Help Desk Support Specialist Name Role Phone Conner Hauser MD Primary Care Provider [phone] Conner Hauser MD Unavailable [phone] Allergies Active Allergy Reactions Criticality Noted [...] long waiting time to go back to [place] in January as she intends to do and have the Mohs procedure there in [facility]. So I advised her to call the correspondence school teacher whom she had seen and receive a [...] should set up with a orthopedist in [facility] when she goes back to [place] and if she has a flareup have [...] Encounters Date Type Department Care Team Description 12/22/2024 Orders Only [facility] Internal Medicine [address] [facility] [place] [address] Les Diaz MD 12/19/2024 Telephone [facility] Internal Medicine [address] [place] [address] Benita Song RN Results 12/16/2024 Orders Only [facility] Internal Medicine [address] [place] [address] ProviderLes MD 12/08/2024 9:38 AM EDT - 12/08/2024 11:59 PM EDT Hospital Encounter [facility] [address] [place] [address] Billy Burroughs PA-C Discharge Disposition: Home or Self Care 12/06/2024 Telephone [facility] Internal Medicine [address] [place] [address] Conner Hauser MD Labs 11/02/2024 Telephone [facility] [address] [place] [address] Conner Hauser MD Referral ([facility] /) 10/21/2024 Telephone [facility] Internal Medicine [address] [facility] [place] [address] Conner Hauser MD Results 10/20/2024 Orders Only [facility] Internal Medicine [address] [facility] [place] [address] Les Diaz MD 10/19/2024 Telephone [facility] Internal [facility] [address] [facility] [place] [address] Conner Hauser MD Results 10/17/2024 10:21 AM EDT - 10/17/2024 11:59 PM EDT Hospital Encounter [facility] [address] [facility] [place] [address] Conner Hauser MD Discharge Disposition: Home or Self Care 10/17/2024 8:30 AM EDT Office Visit [facility] [address] [place] [address] Conner Hauser MD Routine general medical examination [...] nocturnal dyspnea; Persistent cough; Lymphedema 10/17/2024 Telephone [facility] Internal Medicine [address] [facility] [place] [address] scan ordered 10/17/2024 Telephone [facility] Internal [facility] [address] [place] [address] Conner Hauser MD 10/11/2024 8:54 AM EDT - 10/11/2024 11:59 PM EDT Hospital Encounter [facility] Bone Density - [facility] [address] [place] [address] Conner Hauser MD Discharge Disposition: Home or [...] Description 01/11/2025 3:30 PM EDT Office Visit [facility] Internal [facility] [address] [place] [address] Conner Hauser MD [address] [place] [address] [email or web address] Health Maintenance Due Date Last Done Comments COLOGUARD 1995 FIT TEST 1995 FOBT 1995 SIGMOIDOSCOPY 1995 VIRTUAL COLONOSCOPY 1995 ZOSTER VACCINES (1 of 2) 01/25/2000 INFLUENZA VACCINE (#1) 2024 , 02/28/2022, 02/26/2021, Additional history exists DEPRESSION SCREENING 12/01/2024 12/02/2023, 02/06/20 20 COVID-19 VACCINE (3 - 2024- season) 2024 05/27/2020, 05/08/2020 RSV VACCINE (1 [...] OUTSIDE IMAGING Routine 12/22/2024 2:54 PM EDT OUTSIDE LAB Routine 12/15/2024 12:[address] CHEST REPORT ONLY Routine 12/15/2024 8:14 AM EDT COMPREHENSIVE METABOLIC PANEL Routine 12/08/2024 9:38 AM [...] 10/11/2024 9:22 AM EDT Postmenopausal estrogen deficiency HM COLONOSCOPY FOR RESULT ENTRY ONLY Routine 01/29/2022 HEPATITIS C ANTIBODY, QUALITATIVE Routine 10/24/2020 8:02 AM EDT Need for hepatitis C screening test from Last 3 Months or Most Recently Relevant to Health Maintenance Results * Outside Imaging Report Only (12/22/2024 2:54 PM EDT) Historical Provider IMG XR CHEST Final Res ult * Outside Lab (12/15/2024 12:12 PM EDT) Historical Provider LAB BLOOD ORDERABLES Yandy l Result * Outside CT??Chest Report Only (12/15/2024 8:14 AM EDT) Historical Provider IMG CT CHEST Final Res ult * (ABNORMAL) Comprehensive metabolic panel (12/08/2024 9:38 AM EDT) Only the most recent of2 resultswithin the time period is included. SODIUM 140 133 - 146 mmol/L [facility] POTASSIUM 4.3 3.3 - 5.1 mmol/L [facility] CHLORIDE 105 96 - 108 mmol/L [facility] CO2 26 21 - 35 mmol/L [facility] BUN 16 6 - 19 mg/dL [facility] CREATININE 0.70 0.5 - 1.5 mg/dL [facility] GLUCOSE 114(H) 70 - 99 mg/dL [facility] ALBUMIN 4.1 3.9 - 4.8 g/dL [facility] TOTAL PROTEIN 7.1 6.5 - 8.0 g/dL [facility] CALCIUM 9.4 8.4 - 10.3 mg/dL [facility] ALKALINE PHOSPHATASE 76 39 - 117 U/L [facility] TOTAL BILIRUBIN 0.3 0.0 - 1.2 mg/dL [facility] AST 21 0 - 37 U/L [facility] ALT 13 0 - 40 U/L [facility] GLOBULIN 3.0 1 - 4.8 g/dL [facility] EGFR 91 >59 mL/min/1.7 3m2 [facility] Comment:Estimated glomerular filtration rate calculated using the CKD-EPI refit equation. ANION GAP 13 10 - 20 mmol/L [facility] Blood 12/08/2024 9:38 AM EDT 12/08/2024 9:41 AM EDT us Billy Burroughs PA-C LAB BLOOD ORDERABLES Final Re sult Performing Organization Address [facility]/ZIP Co de Phone Number [address] [address] * Outside Imaging Report Only (10/20/2024 12:06 PM EDT) us Historical Provider IMG XR CHEST Edited Re sult - Final * Urinalysis w/reflex Urine Culture (10/17/2024 10:44 AM EDT) COLOR Yellow Yellow [facility] CLARITY Clear [facility] GLUCOSE Negative Negative [facility] BILI Negative Negative [facility] KETONES Negative Negative [facility] SPECIFIC GRAVITY 1.010 1.005 - 1.030 [facility] BLOOD Negative Negative [facility] PH 7.0 5.0 - 8.0 [facility] Protein-UA Negative Negative [facility] NITRITE Negative Negative [facility] Leukocyte esterase, ur Negative Negative [facility] Urine (Urine) 10/17/2024 10: 44 AM EDT 10/17/2024 10:47 AM EDT us Conner Hauser MD URINE ORDERABLES Final Result Performing Organization Address [facility]/ZIP Co de Phone Number [address] [address] * (ABNORMAL) CBC and differential (10/17/2024 10:21 AM EDT) WBC 7.19 4.00 - 11.00 K/uL [facility] RBC 4.06 4.00 - 5.20 M/uL [facility] HGB 13.2 12.0 - 16.0 g/dL [facility] HCT 41.2 36.0 - 46.0 % [facility] PLT 198 150 - 450 K/uL [facility] MCV 101.5(H) 80.0 - 100.0 fL [facility] MCH 32.5(H) 27.0 - 31.0 pg [facility] MCHC 32.0 32.0 - 36.0 g/dL [facility] RDW 14.0 11.5 - 14.5 % [facility] MPV 11.7 8.4 - 12.0 fL [facility] NRBC 0.00 0.00 /100 WBCs [facility] ABSOLUTE NRBC 0.00 0.00 K/uL [facility] DIFF METHOD Auto [facility] NEUTS 50.1 48.0 - 76.0 % [facility] LYMPHS 40.2 18.0 - 41.0 % [facility] MONOS 6.0 4.0 - 11.0 % [facility] EOS 2.8 0.0 - 5.0 % [facility] BASOS 0.6 0.0 - 1.5 % [facility] Granulocytes, immature (%) 0.3 0.0 - 0.9 % [facility] ABSOLUTE NEUTS 3.61 1.92 - 7.60 K/uL [facility] ABSOLUTE LYMPHS 2.89 0.72 - 4.10 K/uL [facility] ABSOLUTE MONOS 0.43 0.16 - 1.10 K/uL [facility] ABSOLUTE EOS 0.20 0.00 - 0.50 K/uL [facility] ABSOLUTE BASOS 0.04 0.00 - 0.15 K/uL [facility] Granulocytes, immature 0.02 0.00 - 0.09 K/uL [facility] Blood 10/17/2024 10:2 1 AM EDT 10/17/2024 10:26 AM EDT us Conner Hauser MD LAB BLOOD ORDERABLES Final Re sult [facility] [address] [place], [place] [phone] * TSH (10/17/2024 10:21 AM EDT) TSH 4.12 0.27 - 4.20 uIU/mL [facility] Blood 10/17/2024 10:2 1 AM EDT 10/17/2024 10:26 AM EDT us Conner Hauser MD LAB BLOOD ORDERABLES Final Re sult Performing Organization Address City/[facility]/ZIP Co de Phone Number [address] [address] * Free T4 (10/17/2024 10:21 AM EDT) FREE T4 1.0 0.9 - 1.7 ng/dL [facility] Blood 10/17/2024 10:2 1 AM EDT 10/17/2024 10:26 AM EDT us Conner Hauser MD LAB BLOOD ORDERABLES Final Re sult Performing Organization Address [facility] Co de Phone Number [address] [address] * (ABNORMAL) Hemoglobin A1c (10/17/2024 10:21 AM EDT) HEMOGLOBIN A1C 5.9(H) 4.3 - 5.8 % [facility] Blood 10/17/2024 10:2 1 AM EDT 10/17/2024 10:26 AM EDT us Conner Hauser MD LAB BLOOD ORDERABLES Final Re sult Performing Organization Address [facility] Co de Phone Number [address] [address] * (ABNORMAL) Lipid panel (10/17/2024 10:21 AM EDT) HDL 58 mg/dL [facility] Comment: Interpretation <40 mg/dL: Low HDL cholesterol (major risk factor for CHD) Greater than or equal to 60 mg/dL: High HDL cholesterol ( negative risk factor for CHD) HDL - cholesterol is affected by a number of factors, e.g. smoking, excerise, hormones, sex and age. CHOLESTEROL 263(H) 0 - 240 mg/dL [facility] TRIGLYCERIDES 233(H) 30 - 160 mg/dL [facility] LDL 158(H) 50 - 129 mg/dL [facility] Comment: LDL levels in terms of risk for coronary heart disease: <100 mg/dL: Optimal 100-129 mg/dL: Near or above optimal 130-159 mg/dL: Borderline high 160-189 mg/dL: High >190 mg/dL: Very High CARDIAC RISK RATIO 4.5(H) 3.3 - 4.4 [facility] Blood 10/17/2024 10:2 1 AM EDT 10/17/2024 10:26 AM EDT us Conner Hauser MD LAB BLOOD ORDERABLES Final Re sult [address] [address] * BD DXA AXIAL (SPINE) WITH HIP (10/11/2024 9:22 AM EDT) Anatomical Region Laterality Modality Bone Density Bone Density 10/11/2024 9:13 AM EDT Impressions 10/12/2024 9:52 AM EDT Interpretation: Normal bone mineral density. Narrative 10/12/2024 9:52 AM EDT Referred By: CONNER HAUSER Indications: Postmenopausal and Estrogen Deficiency Scanner: Tamion A with serial# of [id number] located at [facility] Bone Density Scan (DXA) 10/11/24 Details of [...] -2.5), or Osteoporosis (T-score <= -2.5). At [facility], T-scores are compared to peak bone density [...] HAUSER Indications: Postmenopausal and Estrogen Deficiency Scanner: Tamion A with serial# of [id number] located at [facility] Bone Density Scan (DXA) 10/11/24 Details [...] -2.5), or Osteoporosis (T-score <= -2.5). At [facility], T-scores are compared to peak bone density [...] Normal bone mineral density. Conner Hauser MD IM BD BONE DENSITY DEXA Yandy l Result * MAMMOGRAPHY FOR RESULT ENTRY ONLY (01/18/2024 3:03 PM EDT) Historical Provider HEALTH MAINTENANCE Final Result * COLONOSCOPY FOR RESULT ENTRY ONLY (01/29/2022) Historical Provider HEALTH MAINTENANCE Edited Result - Final * Hepatitis C antibody, qualitative (10/24/2020 8:02 AM EDT) HCV NON-REACTIV E NON-REACTI VE [facility] Blood 10/24/2020 8:02 AM EDT 10/24/2020 8:08 AM EDT Conner Hauser MD LAB BLOOD ORDERABLES Final Re sult [facility] [address] [place] [address] from Last 3 Months or Most Recently Relevant to Health Maintenance Insurance MEDICARE PART A & B [employer] SUPPLEMENT MEDICARE PART A & B [employer] MED[employer] SUPPLEMENT MEDICARE PART A & B [facility] MEDEX SUPPLEMENT MEDICARE PART A & B [employer] SUPPLEMENT MEDICARE PART A & B [employer] SUPPLEMENT MEDICARE PART A & B [employer] SUPPLEMENT MEDICARE PART A & B [employer] MED[employer] SUPPLEMENT [employer] SUPPLEMENT MEDICARE PART A & B [employer] MEDEX SUPPLEMENT Care Teams Help Desk Support Specialist Relationship Specialty Start Date End Date Conner Hauser MD [address] [place], [place] [phone] [email or web address] PCP - General Internal Medicine 12/05/19 Conner Hauser MD [address] [place] [address] [email or web address] Insurance Assigned Provider 07/17/24 Additional Source Comments The information contained in this document represents components of the legal health record. It is not the complete legal health record.[facility]
--- OUTSIDE RECORDS SUMMARY | 2024-12-22 17:25 | XMS_ITS | Encounter Summary ---
Author Organization [facility] Address [address] [place] [address] Phone Care Team Providers Care Otr Driver Name Role Phone Conner Hauser MD Primary Care Provider [phone] Conner Hauser MD Unavailable [phone] Reason for Visit * Reason Onset Date Comments Results 12/19/2024 Encounter Details Date Type Department Care Team (Late st Contact Info) Description 12/19/2024 Telephone [facility] Internal Medicine [address] [place], [place] [phone] Benita Song RN [address] [place], [place] [phone] [email or web address] Results Social History Tobacco Use Types Packs/Day Years [...] AM EDT documented as of this encounter Progress Notes * Benita Song RN - 12/19/2024 2:25 PM EDT Spoke to Eduin and advised. He states understanding, appreciative of call. * Benita Song RN - 12/19/2024 2:24 PM EDT Images from the original note were not included. Conner Hauser MD P [facility] Rn cALL PT AND Notify lungs ok. Liver shows 11 mm lesion which is unchanged since 2020. (NOt mentionedby radiologist in 2020) could get mri if pt desires but given lack of change in 4 years is probablybenign documented in this encounter Plan of Treatment Upcoming Encounters Date Type Department Care Team (Late st Contact Info) Description 01/11/2025 3:30 PM EDT Office Visit [facility] Internal Medicine [address] [place], [place] [phone] Conner Hauser MD [address] [place], [place] [phone] documented as of this encounter Visit Diagnoses Not on filedocumented in this encounter Additional Health Concerns Assessment Noted Time PHQ-2 Depression Total Score: 2 12/02/19 24 9:58 AM EDT documented as of this encounter Care Teams Otr Driver Relationship Specialty Start Date End Date Conner Hauser MD [address] [place] [address] [email or web address] PCP - General Internal Medicine 12/05/19 Conner Hauser MD [address] [place] [address] [email or web address] Insurance Assigned Provider 07/17/24 documented as of this encounter Additional Source Comments The information contained in this document represents components of the legal health record. It is not the complete legal health record.[facility]
== END 2024-12-22 13:29 | disposition home or self-care (01) ==
LOC: HO.US 13:28
PROVIDERS: PCP Internal Medicine; Visit Provider Surgery Vascular Surgery
DX: I83.11 Varicose veins of right lower extremity with inflammation (principal)
CPT/HCPCS: 93970

== ENCOUNTER → 2024-12-22 13:32 | Outpatient (BNV) | payer MEDICARE, SELFPAY | PROVIDERS: PCP Internal Medicine; Visit Provider Radiology Diagnostic Radiology | DX: I83.892 Varicose veins of left lower extremity with other complications (principal) | CPT/HCPCS: 93970 ==

== ENCOUNTER 2025-01-03 12:55 | Outpatient (AMB) | payer MEDICARE, SELFPAY ==
--- NOTE | 2025-01-03 12:59 | A.OFFVIS_ITS ---
Vital Signs 01/03/25 12:59 Height 5 ft 1 in Intake Visit Reasons: follow up 12/22/24 Intake Note: follow up 12/22/24 for bilateral LE swelling. Pt states Left LE slightly worse than the Right LE x 5 yrs, worsening every year. Accompanied by: Spouse Allergies Sulfa (Sulfonamide Antibiotics) Allergy (Unknown, Verified 01/03/25 13:02) Nausea From ZYRTEC Allergy (Mild, Uncoded 01/03/25 13:02) BILLIGERENT Lactose Allergy (Mild, Uncoded 01/03/25 13:02) Stomach Upset ZyrTEC Allergy (Unknown, Uncoded 01/03/25 13:02) Agitated HPI HPI follow up 12/22/24: Details: Very pleasant 74-year-old female presents for follow-up regarding venous insufficiency. She has significantly swollen lower extremities they have been a source of discomfort for her. She now presents for follow-up with venous insufficiency testing. [facility] Medical History Macular degeneration Huerta's cyst of knee Basal cell carcinoma IBS (irritable bowel syndrome) GERD (gastroesophageal reflux disease) Surgical History History of lumpectomy of left breast Hx of umbilical hernia repair Hx of appendectomy Hx of cholecystectomy History of total abdominal hysterectomy Hx of esophagogastroduodenoscopy Hx of colonoscopy Social History Patient Tobacco Use Status: Never used Tobacco Review of Systems Const Reports as per HPI ENT Reports no additional complaints Card Denies chest pain, Denies chest pain at rest and Denies chest pain with activity Resp Denies chest congestion and Denies cough GI Reports no additional complaints Musc Details: pain over varicosities, aching of lower extremities, swelling, cramping, heaviness and tiredness, itching Denies abnormal gait Skin/Breast Reports pruritus and Denies wounds Neuro Reports no additional complaints and Denies abnormal gait Psych Denies no additional complaints Physical Exam Const General: cooperative, healthy appearing and comfortable Orientation/consciousness: oriented to person, oriented to place and oriented to time Neck Carotids: no bruits Chest Chest palpation & inspection: normal inspection of the chest and normal palpation of entire chest wall Resp Effort & Inspection: normal respiratory effort and able to speak in complete sentences Cardio Rate: regular rate Heart sounds: S1 normal heart sound present and S2 normal heart sound present Peripheral pulses: Peripheral pulses 2+ throughout GI Inspection: Yes normal to inspection Skin Other: +2 edema, large rope-like varicosities greater than 4 mm CEAP Classification C4 - skin color changes Ep - Etiology Primary As - superficial veins P - reflux General skin exam: dry skin Neuro General: oriented to person, oriented to place and oriented to time Extrem Other: Right in cm: Thigh 56 Knee 43 Calf 40.5 Ankle 29 Left in cm: Thigh 56.5 Knee 44 Calf 41.5 Ankle 29 Right lower extremity: full ROM, normal capillary refill and edema Left lower extremity: full ROM, normal capillary refill and edema Psych Mental Status: mental status grossly normal Assessment & Plan Assessment & Plan (1) Varicose veins of right lower extremity with inflammation: Code(s): I83.11 - Varicose veins of right lower extremity with inflammation Category: Medical Plan: In short patient is negative for any significant venous insufficiency. She does have significant swelling that is a source of pain and discomfort for her. I do think she would benefit from lymphedema pumps and will try to assist in getting those for her. (2) Lymphedema: Code(s): I89.0 - Lymphedema, not elsewhere classified Category: Medical Plan: In short the patient has late on sent lymphedema. The patient has been on conservative treatment for at least 3 months with minimal relief. Patient has tried 30 mm of mercury compression garments, elevation, exercise healthy diet and doing manual says self MLD to the best of their ability for over 4 weeks but with no significant relief. She has been compliant with the program but has provided minimal relief. In addition on physical we are noticing hyperpigmentation, and hyperplasia. It appears that she has stage 2 lymphedema. Patient has completed multiple forms of conservative therapy yet significant symptoms remain. Patient requires the use of a pneumatic compression device which we will assist in trying to have the patient obtain them. A pneumatic compression device will help reduce swelling and other lymphedema comorbidities. Thank you for allowing us to assist in this patient's care. Coding Level of Care Code Est Pt Level 4 (66694) Diagnoses Varicose veins of right lower extremity with inflammation I83.11 Lymphedema I89.0
--- OUTSIDE RECORDS SUMMARY | 2025-01-03 15:47 | XMS_ITS | Clinical Summary ---
Author Organization [facility] Address [address] [facility] ([place], [place]) [address] [place] [address] Phone Care Team Providers Care Handicapped Teacher Name Role Phone Conner Hauser MD Primary Care Provider [phone] Conner Hauser MD Unavailable [phone] Allergies Active Allergy Reactions Criticality Noted [...] and have the Mohs procedure there in [facility]. So I advised her to call the multi operation machine operator whom she had seen and receive a [...] should set up with a orthopedist in [facility] when she goes back to [place] and [...] Department Care Team Description 12/22/2024 Orders Only [facility] Internal [facility] [address] [facility] [place] [address] Les Diaz MD 12/19/2024 Telephone [facility] Internal Medicine [address] [place] [address] Benita Song RN Results 12/16/2024 Orders Only [facility] Internal Medicine [address] [place] [address] ProviderLes MD 12/08/2024 9:38 AM EDT - 12/08/2024 11:59 PM EDT Hospital Encounter [facility] [address] [place] [address] Billy Burroughs PA-C Discharge Disposition: Home or Self Care 12/06/2024 Telephone [facility] Internal Medicine [address] [facility] [place] [address] Conner Hauser MD Labs 11/02/2024 Telephone [facility] [address] [place] [address] Conner Hauser MD Referral ([facility] /) 10/21/2024 Telephone [facility] Internal Medicine 40 [place] [address] Conner Hauser MD Results 10/20/2024 Orders Only [facility] Internal [facility] [address] [facility] [place] [address] Les Diaz MD 10/19/2024 Telephone [facility] [address] [facility] [place] [address] Conner Hauser MD Results 10/17/2024 10:21 AM EDT - 10/17/2024 11:59 PM EDT Hospital Encounter [facility] [address] [facility] [place] [address] Conner Hauser MD Discharge Disposition: Home or Self Care 10/17/2024 8:30 AM EDT Office Visit [facility] [address] [place] [address] Conner Hauser MD Routine general medical examination [...] nocturnal dyspnea; Persistent cough; Lymphedema 10/17/2024 Telephone [facility] Internal [facility] [address] [facility] [place] [address] scan ordered 10/17/2024 Telephone [facility] [address] [place] [address] Conner Hauser MD 10/11/2024 8:54 AM EDT - 10/11/2024 11:59 PM EDT Hospital Encounter [facility], Bone Density - [facility] [address] [place] [address] Conner Hauser MD Discharge Disposition: Home or [...] Description 01/11/2025 3:30 PM EDT Office Visit [facility] [place] [facility] [address] [place] [address] Conner Hauser MD [address] [place] [address] [email or web address] Health Maintenance Due Date [...] included. SODIUM 140 133 - 146 mmol/L [facility] POTASSIUM 4.3 3.3 - 5.1 mmol/L [facility] CHLORIDE 105 96 - 108 mmol/L [facility] CO2 26 21 - 35 mmol/L [facility] BUN 16 6 - 19 mg/dL [facility] CREATININE 0.70 0.5 - 1.5 mg/dL [facility] GLUCOSE 114(H) 70 - 99 mg/dL [facility] ALBUMIN 4.1 3.9 - 4.8 g/dL [facility] TOTAL PROTEIN 7.1 6.5 - 8.0 g/dL [facility] CALCIUM 9.4 8.4 - 10.3 mg/dL [facility] ALKALINE PHOSPHATASE 76 39 - 117 U/L [facility] TOTAL BILIRUBIN 0.3 0.0 - 1.2 mg/dL [facility] AST 21 0 - 37 U/L [facility] ALT 13 0 - 40 U/L [facility] GLOBULIN 3.0 1 - 4.8 g/dL [facility] EGFR 91 >59 mL/min/1.7 3m2 [facility] Comment:Estimated glomerular filtration rate calculated using the CKD-EPI refit equation. ANION GAP 13 10 - 20 mmol/L [facility] Blood 12/08/2024 9:38 AM EDT 12/08/2024 9:41 AM EDT us Billy Burroughs PA-C LAB BLOOD ORDERABLES Final Re sult Performing Organization Address [facility]/ZIP Co de Phone Number [address] [address] * Outside Imaging Report Only (10/20/2024 12:06 PM EDT) us Historical Provider IMG XR CHEST Edited Re sult - Final * Urinalysis w/reflex Urine Culture (10/17/2024 10:44 AM EDT) COLOR Yellow Yellow [facility] CLARITY Clear [facility] GLUCOSE Negative Negative [facility] BILI Negative Negative [facility] KETONES Negative Negative [facility] SPECIFIC GRAVITY 1.010 1.005 - 1.030 [facility] BLOOD Negative Negative [facility] PH 7.0 5.0 - 8.0 [facility] Protein-UA Negative Negative [facility] NITRITE Negative Negative [facility] Leukocyte esterase, ur Negative Negative [facility] Urine (Urine) 10/17/2024 10: 44 AM EDT 10/17/2024 10:47 AM EDT us Conner Hauser MD URINE ORDERABLES Final Result Performing Organization Address [facility]/ZIP Co de Phone Number [address] [address] * (ABNORMAL) CBC and differential (10/17/2024 10:21 AM EDT) WBC 7.19 4.00 - 11.00 K/uL [facility] RBC 4.06 4.00 - 5.20 M/uL [facility] HGB 13.2 12.0 - 16.0 g/dL [facility] HCT 41.2 36.0 - 46.0 % [facility] PLT 198 150 - 450 K/uL [facility] MCV 101.5(H) 80.0 - 100.0 fL [facility] MCH 32.5(H) 27.0 - 31.0 pg [facility] MCHC 32.0 32.0 - 36.0 g/dL [facility] RDW 14.0 11.5 - 14.5 % [facility] MPV 11.7 8.4 - 12.0 fL [facility] NRBC 0.00 0.00 /100 WBCs [facility] ABSOLUTE NRBC 0.00 0.00 K/uL [facility] DIFF METHOD Auto [facility] NEUTS 50.1 48.0 - 76.0 % [facility] LYMPHS 40.2 18.0 - 41.0 % [facility] MONOS 6.0 4.0 - 11.0 % [facility] EOS 2.8 0.0 - 5.0 % [facility] BASOS 0.6 0.0 - 1.5 % [facility] Granulocytes, immature (%) 0.3 0.0 - 0.9 % [facility] ABSOLUTE NEUTS 3.61 1.92 - 7.60 K/uL [facility] ABSOLUTE LYMPHS 2.89 0.72 - 4.10 K/uL [facility] ABSOLUTE MONOS 0.43 0.16 - 1.10 K/uL [facility] ABSOLUTE EOS 0.20 0.00 - 0.50 K/uL [facility] ABSOLUTE BASOS 0.04 0.00 - 0.15 K/uL [facility] Granulocytes, immature 0.02 0.00 - 0.09 K/uL [facility] Blood 10/17/2024 10:2 1 AM EDT 10/17/2024 10:26 AM EDT us Conner Hauser MD LAB BLOOD ORDERABLES Final Re sult [facility] [address] [place], [place] [id number] * TSH (10/17/2024 10:21 AM EDT) TSH 4.12 0.27 - 4.20 uIU/mL [facility] Blood 10/17/2024 10:2 1 AM EDT 10/17/2024 10:26 AM EDT us Conner Hauser MD LAB BLOOD ORDERABLES Final Re sult Performing Organization Address City/[facility]/ZIP Co de Phone Number [address] [address] * Free T4 (10/17/2024 10:21 AM EDT) FREE T4 1.0 0.9 - 1.7 ng/dL [facility] Blood 10/17/2024 10:2 1 AM EDT 10/17/2024 10:26 AM EDT us Conner Hauser MD LAB BLOOD ORDERABLES Final Re sult Performing Organization Address [facility] Co de Phone Number [address] [address] * (ABNORMAL) Hemoglobin A1c (10/17/2024 10:21 AM EDT) HEMOGLOBIN A1C 5.9(H) 4.3 - 5.8 % [facility] Blood 10/17/2024 10:2 1 AM EDT 10/17/2024 10:26 AM EDT us Conner Hauser MD LAB BLOOD ORDERABLES Final Re sult Performing Organization Address [facility] Co de Phone Number [address] [address] * (ABNORMAL) Lipid panel (10/17/2024 10:21 AM EDT) HDL 58 mg/dL [facility] Comment: Interpretation <40 mg/dL: Low HDL cholesterol (major risk factor for CHD) Greater than or equal to 60 mg/dL: High HDL cholesterol ( negative risk factor for CHD) HDL - cholesterol is affected by a number of factors, e.g. smoking, excerise, hormones, sex and age. CHOLESTEROL 263(H) 0 - 240 mg/dL [facility] TRIGLYCERIDES 233(H) 30 - 160 mg/dL [facility] LDL 158(H) 50 - 129 mg/dL [facility] Comment: LDL levels in terms of risk for coronary heart disease: <100 mg/dL: Optimal 100-129 mg/dL: Near or above optimal 130-159 mg/dL: Borderline high 160-189 mg/dL: High >190 mg/dL: Very High CARDIAC RISK RATIO 4.5(H) 3.3 - 4.4 [facility] Blood 10/17/2024 10:2 1 AM EDT 10/17/2024 10:26 AM EDT us Conner Hauser MD LAB BLOOD ORDERABLES Final Re sult [address] [address] * BD DXA AXIAL (SPINE) WITH HIP (10/11/2024 9:22 AM EDT) Anatomical Region Laterality Modality Bone Density Bone Density 10/11/2024 9:13 AM EDT Impressions 10/12/2024 9:52 AM EDT Interpretation: Normal bone mineral density. Narrative 10/12/2024 9:52 AM EDT Referred By: CONNER HAUSER Indications: Postmenopausal and Estrogen Deficiency Scanner: Dana Translation A with serial# of [id number] located at [facility] Bone Density Scan (DXA) 10/11/24 Details [...] -2.5), or Osteoporosis (T-score <= -2.5). At [facility], T-scores are compared to peak bone density [...] HAUSER Indications: Postmenopausal and Estrogen Deficiency Scanner: Dana Translation A with serial# of [id number] located at [facility] Bone Density Scan (DXA) 10/11/24 Details [...] -2.5), or Osteoporosis (T-score <= -2.5). At [facility], T-scores are compared to peak bone density [...] AM EDT) HCV NON-REACTIV E NON-REACTI VE [facility] Blood 10/24/2020 8:02 AM EDT 10/24/2020 8:08 AM EDT Conner Hauser MD LAB BLOOD ORDERABLES Final Re sult [facility] [address] [place] [address] from Last 3 Months or Most Recently Relevant to Health Maintenance Insurance MEDICARE PART A & B [employer] MEDEX SUPPLEMENT MEDICARE PART A & B [employer] MEDEX SUPPLEMENT MEDICARE PART A & B [facility] MEDEX SUPPLEMENT MEDICARE PART A & B [employer] MEDEX SUPPLEMENT MEDICARE PART A & B [employer] MEDEX SUPPLEMENT MEDICARE PART A & B [employer] MEDEX SUPPLEMENT MEDICARE PART A & B [employer] MEDEX SUPPLEMENT [employer] SUPPLEMENT MEDICARE PART A & B [employer] MEDEX SUPPLEMENT Care Teams Handicapped Teacher Relationship Specialty Start Date End Date Conner Hauser MD [address] [place], [place] [phone] [email or web address] PCP - General Internal Medicine 12/05/19 Conner Hauser MD [address] [place] [address] [email or web address] Insurance Assigned Provider 07/17/24 Additional Source Comments The information contained in this document represents components of the legal health record. It is not the complete legal health record.[facility]
--- OUTSIDE RECORDS SUMMARY | 2025-01-03 15:47 | XMS_ITS | Encounter Summary ---
Author Organization [facility] Address [address] [facility] [address] [place] [address] Phone Care Team Providers Care Graphic Technician Name Role Phone Conner Hauser MD Primary Care Provider [phone] Conner Hauser MD Unavailable Encounter Details Date Type Department Care Team (Late st Contact Info) Description 12/22/2024 Orders Only [facility] Internal Medicine [address] [place] [address] Provider, MD Les [address] [place], [place] [address] Social History Tobacco Use Types Packs/Day Years [...] Description 01/11/2025 3:30 PM EDT Office Visit [facility] Internal Medicine [address] [place] [address] Conner Hauser MD [address] [place] [address] [email or web address] documented as of this encounter Procedures Procedure [...] documented as of this encounter Care Teams Graphic Technician Relationship Specialty Start Date End Date Conner Hauser MD [address] [place] [address] [email or web address] PCP - General Internal Medicine 12/05/19 Conner Hauser MD [address] [place] [address] [email or web address] Insurance Assigned Provider 07/17/24 documented as of this encounter Additional Source Comments The information contained in this document represents components of the legal health record. It is not the complete legal health record.[facility]
--- OUTSIDE RECORDS SUMMARY | 2025-01-03 15:47 | XMS_ITS | Patient Health Record ---
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.19) Active confirmed Problem Pain in limb (87381895) Pain in Limb (729.5) Active confirmed Problem Hammer toe (528735182) Hammer toe (735.4) Active confirmed Plan Of Treatment Pending Test Test Name Order Date X ray : Foot, right 3V 07/10/2014 53480-Rjvz Destruction, 1-14 07/24/2014 79105-Yzhr Destruction, -14 08/16/2014 23694-Hlhi Destruction, -14 07/11/2013 43886-Vbea Destruction, -08/08/2013 10755-Vsfc Destruction, 04-2609/07/2013 31180-Diyx Destruction, 04-2610/13/2013 44938-Pvao Destruction, 04-2611/10/2013 93718-Mcwu Destruction, 04-2612/14/2013 47186-Japf Destruction, 04-2601/25/2014 52847-Ybaj Destruction, 04-2602/27/2014 27382-Ezqw Destruction, 04-2603/29/2014 67856-Lunf Destruction, 04-2605/31/2014 21828-Acjz Destruction, 04-2606/28/2014 36541-Rbeu Destruction, 04-2607/10/2014 Insurance Providers Payer Name Payer Address Payer Phone Subscriber Number Group Number Insured Name Patient Relationship to Insured Coverage Start Date Coverage End Date [facility] [address] [place] [address] [id number] Eduin Long Spouse - patient is the spouse of the insured Medical (General) History Medical History History ICD Code Chicken pox Measles Mumps Transfusions Surgical History Surgery Date(Month/Year) cystectomy gall bladder hysterectomy lumpectomy
--- OUTSIDE RECORDS SUMMARY | 2025-01-03 15:47 | XMS_ITS | Encounter Summary ---
Author Organization [facility] Address [address] [place] [address] Phone Care Team Providers Care Master Automotive Technician Name Role Phone Conner Hauser MD Primary Care Provider [phone] Conner Hauser MD Unavailable [phone] Reason for Referral * MRI/CAT Scan - Closed Specialty Diagnoses / Procedures Referred By Nilson malagon Referred To Contact Radiology Procedures Outside CT Chest Report Only Isrrael Monreal [facility] Internal Medicine [address] [place] [address] Phone: tel: fax: Referral ID Status Reason Start Date Expiration Date Visits Re quested Visits Authorized [id number] Closed 12/16/2024 1 1 Encounter Details Date Type Department Care Team (Late st Contact Info) Description 12/16/2024 Orders Only Arcos Jocelin [facility] Internal Medicine [address] [place] [address] Les Diaz MD [address] [place] [address] Social History Tobacco Use Types Packs/Day [...] Description 01/11/2025 3:30 PM EDT Office Visit [facility] Internal Medicine [address] [place] [address] Conner Hauser MD [address] [place] [address] [email or web address] documented as of this encounter Procedures Procedure [...] documented as of this encounter Care Teams Master Automotive Technician Relationship Specialty Start Date End Date Conner Hauser MD [address] [place] [address] PCP - General Internal Medicine 12/05/19 Conner Hauser MD [address] [place] [address] Insurance Assigned Provider 07/17/24 documented as of this encounter Additional Source Comments The information contained in this document represents components of the legal health record. It is not the complete legal health record.[facility]
--- OUTSIDE RECORDS SUMMARY | 2025-01-03 15:47 | XMS_ITS | Encounter Summary ---
Author Organization [facility] Address [address] [facility] [address] [place], [place] [phone] Phone Care Team Providers Care Fruit Or Nut Picker Name Role Phone Conner Hauser MD Primary Care Provider [phone] Conner Hauser MD Unavailable [phone] Conner Hauser MD Primary Care Provider [phone] Conner Hauser MD Unavailable [phone] oCnner Hauser MD Unavailable [phone] Encounter Details Date Type Department Care Team (Latest Contact Info) Description 11/06/2017 Transcribe Orders [facility] Specimen Processing [address] [place] [address] Conner Hauser MD [address] [place] [address] [email or web address] Acute pharyngitis, unspecified etiology (Primary Dx) Social [...] Description 01/11/2025 3:30 PM EDT Office Visit [facility] Internal Medicine [address] [place] [address] Conner Hauser MD [address] [place] [address] [email or web address] documented as of this encounter Results * (ABNORMAL) Throat culture (11/06/2017 7:54 PM EDT) Specimen Source/ Description THROAT THROAT [facility] Special Requests None [facility] Culture/Test MIXED ORGANISMS RESEMBLING OROPHARYNGEAL JACKSON(A) [facility] Report Status 11/08/2017 FINAL [facility] Other (Throat) 11/06/2017 7: 54 PM EDT 11/06/2017 8:00 PM EDT Conner Hauser MD MICROBIOLOGY - GENERAL SHANIQUEA BLES Final Result Performing Organization Address City/State/[facility] Co de Phone Number [address] [address] documented in this encounter Visit Diagnoses Diagnosis Acute pharyngitis, unspecified etiology- Primary documented in this encounter Additional Health Concerns Assessment Noted Time PHQ-2 Depression Total Score: 0 04/20/19 18 10:27 AM EST documented as of this encounter Care Teams Fruit Or Nut Picker Relationship Specialty Start Date End Date Conner Hauser MD [address] [place] [address] PCP - General 01/29/17 12/04/19 Conner Hauser MD [address] [place] [address] PCP - General Internal Medicine 12/05/19 Conner Hauser MD [address] [place] [address] [email or web address] Insurance Assigned Provider 07/11/17 05/13/19 Conner Hauser MD [address] [place] [address] [email or web address] Insurance Assigned Provider 07/21/20 04/19/22 Conner Hauser MD [address] [place] [address] [email or web address] Insurance Assigned Provider 07/17/24 documented as of this encounter Additional Source Comments The information contained in this document represents components of the legal health record. It is not the complete legal health record.[facility]
== END 2025-01-03 13:38 | disposition home or self-care (01) ==
LOC: HO.HVS 12:56
PROVIDERS: PCP Internal Medicine; Visit Provider Surgery Vascular Surgery
DX: I83.11 Varicose veins of right lower extremity with inflammation (principal); I89.0 Lymphedema, not elsewhere classified
CPT/HCPCS: 99214

== ENCOUNTER → 2025-01-03 12:55 | Outpatient (BNVA) | payer MEDICARE, SELFPAY | PROVIDERS: PCP Internal Medicine; Visit Provider Surgery Vascular Surgery | DX: I83.11 Varicose veins of right lower extremity with inflammation (principal); I89.0 Lymphedema, not elsewhere classified | CPT/HCPCS: 99212 ==